=== PATIENT | female | born 1960 | race Two or more races ===

== ENCOUNTER 2024-09-13 18:23 | Inpatient (IN) | payer OTHER, MEDICAID ==
[~2024-09-13] VITALS: Ht 170.2 cm; Wt 139.8 kg
[~2024-09-13 18:23] MED LIST: APIX5TAB PO; BACL10TA PO; FLUT1SPR5 EACHNOSTRI; GABA-1250 PO; HYDR-4798 PO; HYDR200T36 PO; LACT10SO3 PO; METH2.5T62 PO; MORP1TAB12 PO; OMEP-448 PO
[2024-09-13 18:39] VITALS: PULSE 77; RESP 10; O2SAT 99
--- NOTE | 2024-09-13 18:42 | ED.PDOC ---
History of Present Illness HPI Comments 64F BIBA w/ no prior Hx associated to the c/c of SOB. Pt states that she has been having the SOB for a "couple of days". EMS note that the pt has been having cough w/ phlegm but an unknown color as well as having left sided crackles. Pt's Accucheck was 97 on scene. SHx of Tubal Ligation. Denies chills, fever, N/V/D, CP or other associated symptom's, modifiers, or recent injuries or sick contact at this time. 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, Medications, Allergies Allergies: Coded Allergies: NO KNOWN ALLERGIES (Unverified , 09/13/24) Information Source: Patient, Emergency Med Personnel Mode of Arrival: EMS Severity: Moderate Timing: Days Duration: Since onset, Days Prehospital treatment: None Associated signs and symptoms chest pain Past Medical History PAST MEDICAL HISTORY: Denies Surgical History: Tubal Ligation SANITATION LABORER History: No Pertinent SANITATION LABORER History Family History Family History: Reviewed,noncontributory to illness, Unknown Social History Smoker: Non-Smoker Alcohol: Denies ETOH Use Drugs: Denies Drug Use Lives In: Home Constitutional: denies: chills, diaphoresis, fatigue, fever, malaise, sweats, weakness, others EENTM: denies: blurred vision, double vision, ear bleeding, ear discharge, ear drainage, ear pain, ear ringing, eye pain, eye redness, hearing loss, mouth pain, mouth swelling, nasal discharge, nose bleeding, nose congestion, nose pain, photophobia, tearing, throat pain, throat swelling, voice changes, others Respiratory: reports: cough, shortness of breath; denies: hemoptysis, orthopnea, SOB at rest, SOB with excertion, stridor, wheezing, others Cardiovascular: denies: chest pain, dizzy spells, diaphoresis, Dyspnea on exertion, edema, irregular heart beat, left arm pain, lightheadedness, palpitations, PND, syncope, others Gastrointestinal: denies: abdomen distended, abdominal pain, blood streaked bowels, constipated, diarrhea, dysphagia, difficulty swallowing, hematemesis, melena, nausea, poor appetite, poor fluid intake, rectal bleeding, rectal pain, vomiting, others Genitourinary: denies: abnormal vagina bleeding, burning, dyspareunia, dysuria, flank pain, frequency, hematuria, incontinence, pain, , vagina discharge, urgency, others Neurological: denies: dizziness, fainting, headache, left sided numbness, left sided weakness, numbness, paresthesia, pre-existing deficit, right sided numbness, right sided weakness, seizure, speech problems, tingling, tremors, weakness, others Musculoskeletal: denies: back pain, gout, joint pain, joint swelling, muscle pain, muscle stiffness, neck pain, others Integumetry: denies: bruises, change in color, change in hair/nails, dryness, laceration, lesions, lumps, rash, wounds, others Allergic/Immunocompromised: denies: Difficulty Healing, Frequent Infections, Hives, Itching, others Hematologic/Lymphatic: denies: anemia, blood clots, easy bleeding, easy bruising, swollen glands, others Endocrine: denies: excessive hunger, excessive sweating, excessive thirst, excessive urination, flushing, intolerance to cold, intolerance to heat, unexplained weight gain, unexplained weight loss, others Psychiatric: denies: anxiety, bipolar disorder, depression, hopeless, panic disorder, schizophrenia, sleepless, suicidal, others All Other Systems: Reviewed and Negative Physical Exam General Appearance: Moderate Distress HEENT: Normal ENT Inspection, Pharynx Normal, TMs Normal Neck: Full Range of Motion, Non-Tender, Normal, Normal Inspection Respiratory: Chest Non-Tender, Lungs Clear, No Accessory Muscle Use, No Respiratory Distress, Normal Breath Sounds Cardiovascular: No Edema, No JVD, No Murmur, No Gallop, Normal Peripheral Pulses, Regular Rate/Rhythm Breast Exam: Deferred Gastrointestinal: No Organomegaly, Non Tender, No Pulsatile Mass, Normal Bowel Sounds, Soft Genitalia: Deferred Pelvic: Deferred Rectal: Deferred Extremities: No calf tenderness, Normal capillary refill, Non-tender, No pedal edema Musculoskeletal : Apperance: Normal Neurologic: Alert, 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 Was a procedure done?: No EKG EKG : Pulse Rate (adult): 80 [place]: Normal Cardiac Rhythm: NSR Block: None Hypertrophy: None ST: Normal Differential Dx Considerations may include: Generalized weakness, pneumonia, CHF, respiratory distress X-Ray, Labs, Meds, VS Vital Signs Date Time Temp Pulse Resp B/P (MAP) Pulse Ox O2 Delivery O2 Flow Rate FiO2 09/13/24 18:50 98.2 76 16 140/50 (80) 99 09/13/24 18:45 16 99 Nasal Cannula* 09 1309/13/24 18:42 80 09/13/24 18:41 98.1 78 10 164/138 (147) 99 98.1 09/13/24 18:39 77 10 99 Nasal Cannula* 2 09/13/24 18:24 80 Lab Test 09/13/24 19:00 Range/Units White Blood Count 3.5 L 4.4-10.8 10^3/uL Red Blood Count 4.91 4.0-5.20 10^6/uL Hemoglobin 13.5 12.2-16.2 g/dL Hematocrit 41.9 36.0-46.0 % Mean Corpuscular Volume 85.4 80.0-100.0 fL Mean Corpuscular Hemoglobin 27.4 L 28.0-32.0 pg Mean Corpuscular Hemoglobin Concent 32.1 32.0-36.0 g/dL Red Cell Distribution Width 18.6 H 11.8-14.3 % Platelet Count 235 140-450 10^3/uL Mean Platelet Volume 7.9 6.9-10.8 fL Neutrophils (%) (Auto) 35.6 L 37.0-80.0 % Lymphocytes (%) (Auto) 45.6 10.0-50.0 % Monocytes (%) (Auto) 14.2 H 0.0-12.0 % Eosinophils (%) (Auto) 4.3 0.0-7.0 % Basophils (%) (Auto) 0.3 0.0-2.0 % Neutrophils # (Auto) 1.2 L 1.6-8.6 10 ^3/uL Lymphocytes # (Auto) 1.6 0.4-5.4 10 ^3/uL Monocytes # (Auto) 0.5 0-1.3 10 ^3/uL Eosinophils # (Auto) 0.1 0-0.8 10 ^3/uL Basophils # (Auto) 0 0-0.2 10 ^3/uL Nucleated Red Blood Cells 0.4 % Sodium Level 142 136-145 mmol/L Potassium Level 3.3 L 3.5-5.1 mmol/L Chloride Level 104 98-107 mmol/L Carbon Dioxide Level 28 20-31 mmol/L Anion Gap 10 5-15 Blood Urea Nitrogen < 5 L 9-23 mg/dL Creatinine 0.49 L 0.550-1.02 mg/dL Glomerular Filtration Rate Calc 105 >90 mL/min BUN/Creatinine Ratio 10.2 10.0-20.0 Serum Glucose 104 74-106 mg/dL Lactic Acid Level 1.2 0.4-2.0 mmol/L Calcium Level 9.3 8.7-10.4 mg/dL B-Type Natriuretic Peptide 15.52 0-100 pg/mL IV Hep-Lock was established The patient's CBC is within normal limits The chemistry panel shows hypokalemia at 3.3 The rest of the chemistry panel is within normal limits The patient was given Lasix 40 mg IV push The chest x-ray shows some pulmonary congestion The patient was also given potassium The patient was being admitted to the hospitalist. Images Reviewed?: Images reviewed and evaluated by me Time of 1ST Reevaluation: 18:55 Reevaluation 1ST: Unchanged Patient Education/Counseling: Diagnosis, Treatment, Prognosis Family Education/Counseling: No Family Present Departure 1 Departure Time of Disposition: 20:15 Impression: Primary Impression: Acute respiratory distress Additional Impressions: Acute on chronic diastolic heart failure Hypokalemia Disposition: ADMITTED INPATIENT Admit to: [facility] Condition: Fair Critical Care Note Critical Care Time?: Yes (45 min-critical care time only) Stability Stability form required: Yes Unstable for transfer: Telemetry monitoring (Telemetry monitoring required), ED Physician Assesment (Clinical assesment) Heart Score Heart Score: Heart Score Response (Comments) Value History Moderate Suspicious 1 EKG Repolarization Disturb 1 Age >65 2 Risk Factors >3 or Hx ASHD 2 Troponin Normal limit 0 Total 6 I personally scribed for AUGUSTIN TORREZ MD ([email or web address]) on 09/13/24 at 18:42. Electronically submitted by Ashish Panda ([email or web address]). AUGUSTIN TORREZ MD Sep 13, 2024 18:42
--- NOTE | 2024-09-13 18:58 | DVH ---
EXAM: XR Chest, 1 View CLINICAL INDICATION: sob TECHNIQUE: Frontal view of the chest. COMPARISON: None FINDINGS: LUNGS AND PLEURAL SPACES: See below. HEART: Cardiomegaly with mild congestion. MEDIASTINUM: Unremarkable. Normal mediastinal contour. BONES/JOINTS: Unremarkable. No acute fracture. OTHER FINDINGS: . IMPRESSION: Cardiomegaly with mild congestion.
[2024-09-13 19:34] LABS: Basophils # (auto) 0 10 ^3/uL (0-0.2); Basophils % (auto) 0.3 % (0.0-2.0); Eosinophils # (auto) 0.1 10 ^3/uL (0-0.8); Eosinophils % (auto) 4.3 % (0.0-7.0); Hematocrit 41.9 % (36.0-46.0); Hemoglobin 13.5 g/dL (12.2-16.2); Lymphocytes # (auto) 1.6 10 ^3/uL (0.4-5.4); Lymphocytes % (auto) 45.6 % (10.0-50.0); Mean Corpuscular Hemoglobin 27.4 pg (28.0-32.0); Mean Corpuscular Hgb Conc. 32.1 g/dL (32.0-36.0); Mean Corpuscular Volume 85.4 fL (80.0-100.0); Monocytes # (auto) 0.5 10 ^3/uL (0-1.3); Monocytes % (auto) 14.2 % (0.0-12.0); Neutrophils # (auto) 1.2 10 ^3/uL (1.6-8.6); Neutrophils % (auto) 35.6 % (37.0-80.0); Nucleated Red Blood Cells % 0.4 %; Platelet Count (auto) 235 10^3/uL (140-450); Red Blood Cells 4.91 10^6/uL (4.0-5.20); Red Cell Distribution Width 18.6 % (11.8-14.3); White Blood Cell 3.5 10^3/uL (4.4-10.8)
[2024-09-13 19:41] LABS: Chloride 104 mmol/L (98-107); Sodium 142 mmol/L (136-145)
[2024-09-13 19:42] LABS: Anion Gap 10 (5-15); Calcium 9.3 mg/dL (8.7-10.4); Carbon Dioxide 28 mmol/L (20-31)
[2024-09-13 19:47] LABS: Glucose 104 mg/dL (74-106)
[2024-09-13 19:48] LABS: BUN/Creatinine Ratio 10.2 (10.0-20.0); Blood Urea Nitrogen < 5 mg/dL (9-23); Potassium 3.3 mmol/L (3.5-5.1)
[2024-09-13] MEDS: POTASSIUM CHL 20MEQ/100ML 100 ML IV ONE (20:15)
[2024-09-13] MEDS: FUROSEMIDE 40 MG/4 ML VIAL IV ONE (20:57)
[2024-09-13] MEDS: POTASSIUM EFFERVESENT TAB 25 MEQ PO ONE (20:57)
[2024-09-13 21:30] VITALS: PULSE 77; RESP 14; O2SAT 99
--- NOTE | 2024-09-13 21:57 | DVHHP2 ---
History of Present Illness Reason for Visit: Acute respiratory distress History of Present Illness The patient is a 64 years old female with past medical history of arthritis and GERD who presented to [facility] ED with complaint of shortness of breaths. Patient reports symptoms progressively get worse with nonproductive cough with phlegm, generalized weakness, getting worse today that prompted this visit. Patient reports she is nonambulatory for the past 1 year. Patient was seen and evaluated in the ED, laboratory data shows WBC 3.5, platelets 235, sodium 142, potassium 3.3, BUN 5, creatinine 0.49, GFR 105, glucose 104, BNP 15.52, blood pressure 140/50, heart rate 76, temperature 98.6 F, O2 saturation 99% on oxygen. Chest x-ray revealing cardiomegaly with mild congestion. Please see medication orders section in the computer. On my assessment, patient denies chest pain, no headache, no dizziness, currently on oxygen, no nausea, no vomiting, fever, no chills. Patient was admitted for further evaluation and medical management. Past Medical History GERD, Arthritis Past Surgical History Tubal Ligation Family History Reviewed, noncontributory to the management of this case. Past Social History The patient lives at home, denies smoking, alcohol or illicit drugs abuse. Review of Systems Constitutional: Yes: Weakness; No: Fever, Chills, Sweats, Malaise, Other Eyes: No: Pain, Vision change, Conjunctivae inflammation, Eyelid inflammation, Other, Redness ENT: No: Ear pain, Ear discharge, Nose pain, Nose discharge, Nose congestion, Mouth pain, Mouth swelling, Throat pain, Throat swelling, Other Respiratory: Cough, Shortness of breath; No: Dry, SOB with excertion, Wheezing, Hemoptysis, Pleuritic Pain, Sputum, Wheezing, Other Cardiovascular: No: Chest Pain, Palpitations, Orthopnea, Paroxysmal Noc. Dyspnea, Edema, Lt Headedness, Other Gastrointestinal: No: Nausea, Vomiting, Abdominal Pain, Diarrhea, Constipation, Melena, Hematochezia, Other Genitourinary: No Dysuria, No Frequency, No Incontinence, No Hematuria, No Retention, No Other Musculoskeletal: No: other, neck pain, shoulder pain, arm pain, back pain, hand pain, leg pain, foot pain Skin: No: Rash, Lesions, Jaundice, Bruising, Other Neurological: No: Weakness, Numbness, Incoordination, Change in speech, Confusion, Seizures, Other Allergies: Coded Allergies: NO KNOWN ALLERGIES (Unverified , 09/13/24) Medications Current Medications Medications Dose Ordered Sig/Eliseo Route Start Time Stop Time Status Last Admin Dose Admin Famotidine 20 mg DAILY IV 09/14/24 10:00 UNV Guaifenesin/ Dextromethorphan 10 ml Q4HP PRN PO 09/13/24 22:00 UNV Albuterol 2.5 mg Q4HPRN PRN NEB 09/13/24 22:00 UNV Ipratropium [place] 0.5 mg Q4HPRN PRN NEB 09/13/24 22:00 UNV Gabapentin 300 mg TID PO 09/13/24 22:00 UNV Apixaban 5 mg BID PO 09/13/24 22:00 UNV Sodium Chloride 10 ml Q8HR IV 09/13/24 22:00 UNV Acetaminophen/ Hydrocodone Bitart 1 tab Q4HP PRN PO 09/13/24 22:00 UNV Ondansetron HCl 4 mg Q4HP PRN IV 09/13/24 22:00 UNV Docusate Sodium 100 mg BIDPRN PRN PO 09/13/24 22:00 UNV Acetaminophen 650 mg Q6HP PRN PO 09/13/24 22:00 UNV Nitroglycerin 0.4 mg Q5MINP PRN SL 09/13/24 22:00 UNV Morphine Sulfate 2 mg Q30M PRN IV 09/13/24 22:00 UNV Exam Vital Signs Vital Signs Date Time Temp Pulse Resp B/P (MAP) Pulse Ox O2 Delivery O2 Flow Rate FiO2 09/13/24 20:57 106/61 09/13/24 20:00 98.6 70 12 99 98.6 09/13/24 18:45 Nasal Cannula* 2 28 General Appearance: Alert, Oriented X3, Cooperative, No acute distress HEENT: Atraumatic, PERRLA, EOMI, Mucous membr. moist/pink Respiratory: Normal air movement, Other (Crackles) Cardiovascular: Regular rate, Normal S1, Normal S2, No murmurs Abdominal: Normal bowel sounds, Soft, No tenderness, No hepatospenomegaly, No masses Extremities: No clubbing, No cyanosis, No edema, Normal pulses, No tenderness/swelling Skin: No rashes, No breakdown, No significant lesion Neuro: Normal speech, Normal tone, Sensation intact, Cranial nerves 3-12 NL, Reflexes 2+, Other (Generalized weakness) Psych/Mental Status: Mental status NL, Mood NL Labs/Xrays Labs Test 09/13/24 21:45 09/13/24 19:00 Range/Units White Blood Count 3.5 L 4.4-10.8 10^3/uL Red Blood Count 4.91 4.0-5.20 10^6/uL Hemoglobin 13.5 12.2-16.2 g/dL Hematocrit 41.9 36.0-46.0 % Mean Corpuscular Volume 85.4 80.0-100.0 fL Mean Corpuscular Hemoglobin 27.4 L 28.0-32.0 pg Mean Corpuscular Hemoglobin Concent 32.1 32.0-36.0 g/dL Red Cell Distribution Width 18.6 H 11.8-14.3 % Platelet Count 235 140-450 10^3/uL Mean Platelet Volume 7.9 6.9-10.8 fL Neutrophils (%) (Auto) 35.6 L 37.0-80.0 % Lymphocytes (%) (Auto) 45.6 10.0-50.0 % Monocytes (%) (Auto) 14.2 H 0.0-12.0 % Eosinophils (%) (Auto) 4.3 0.0-7.0 % Basophils (%) (Auto) 0.3 0.0-2.0 % Neutrophils # (Auto) 1.2 L 1.6-8.6 10 ^3/uL Lymphocytes # (Auto) 1.6 0.4-5.4 10 ^3/uL Monocytes # (Auto) 0.5 0-1.3 10 ^3/uL Eosinophils # (Auto) 0.1 0-0.8 10 ^3/uL Basophils # (Auto) 0 0-0.2 10 ^3/uL Nucleated Red Blood Cells 0.4 % Sodium Level 142 136-145 mmol/L Potassium Level 3.3 L 3.5-5.1 mmol/L Chloride Level 104 98-107 mmol/L Carbon Dioxide Level 28 20-31 mmol/L Anion Gap 10 5-15 Blood Urea Nitrogen < 5 L 9-23 mg/dL Creatinine 0.49 L 0.550-1.02 mg/dL Glomerular Filtration Rate Calc 105 >90 mL/min BUN/Creatinine Ratio 10.2 10.0-20.0 Serum Glucose 104 74-106 mg/dL Lactic Acid Level 1.2 0.4-2.0 mmol/L Calcium Level 9.3 8.7-10.4 mg/dL B-Type Natriuretic Peptide 15.52 0-100 pg/mL PATIENT: IJEOMA LIZAMA ACCT: [id number] UNIT: [id number] : 1960 LOC: ER ROOM / BED: / AGE / SEX: 64 / F ADM STATUS: REG ER SERVICE 1840 ORDERING PHYSICIAN: AUGUSTIN TORREZ MD PROCEDURE(s): CXRP - CHEST PORTABLE REASON: sob ORDER NUMBER(s): [id number], ACCESSION NUMBER(s): [id number] EXAM: XR Chest, 1 View CLINICAL INDICATION: sob TECHNIQUE: Frontal view of the chest. COMPARISON: None FINDINGS: LUNGS AND PLEURAL SPACES: See below. HEART: Cardiomegaly with mild congestion. MEDIASTINUM: Unremarkable. Normal mediastinal contour. BONES/JOINTS: Unremarkable. No acute fracture. OTHER FINDINGS: IMPRESSION: Cardiomegaly with mild congestion. Assessment/Plan Assessment/Plan Acute respiratory distress Hypokalemia Generalized weakness Plan 1. Admit to telemetry unit 2. Breathing treatment 3. Pain control management 4. Management of fluids and electrolytes 5. Consultation for hospitalist 6. Diagnostic tests chest x-ray 7. DVT prophylaxis-on Eliquis 8. Repeat labs CBC, CMP in a.m. 9. Continue with current medical management 10. Treatment plan discussed with patient and RN. Patient verbalized understanding. Plan discussed with: Patient, Other (RN) My Orders Orders - JEREMI NARAYAN DNP Procedure Category Date Status Time Famotidine Injection PHA 09/14/24 Logged (Pepcid Injection) 10:00 Guaifenesin-Dextromet PHA 09/13/24 Logged Liquid (Robitussin 22:00 Albuterol Medneb PHA 09/13/24 Logged (Ventolin Medneb) 22:00 Ipratropium Medneb PHA 09/13/24 Logged (Atrovent Medneb) 22:00 Gabapentin Capsule PHA 09/13/24 Logged (Neurontin Capsule) 22:00 Apixaban (Eliquis) PHA 09/13/24 Logged 22:00 Admit ADMIT 09/13/24 Transmitted 21:47 Allergies ABRAN 09/13/24 In Process 21:47 Code Status CODE 09/13/24 Transmitted 21:47 Sodium Chloride Lock PHA 09/13/24 Logged (Saline Lock Ns) 22:00 Oxygen Per Hour RT 09/13/24 Transmitted 21:47 Hydrocodone-Acet PHA 09/13/24 Logged 5/325mg Tab ([place] 22:00 Ondansetron Hcl PHA 09/13/24 Logged (Zofran) 22:00 Docusate Sodium PHA 09/13/24 Logged Capsule (Colace 22:00 Fall Risk Precautions ABRAN 09/13/[address] 21:47 Complete Blood Count LAB 09/14/24 Verified 04:00 Comprehensive LAB 09/14/24 Verified Metabolic Panel 04:00 Cardiac DIET 09/14/24 Transmitted Diet-2gna,Lofat,Lochol Breakfast Condition: Serious ABRAN 09/13/24 In Process 21:47 Acetaminophen Tablet PHA 09/13/24 Logged (Tylenol Tablet) 22:00 Sequential ABRAN 09/13/24 In Process Compression Device Nitroglycerin PHA 09/13/24 Logged Sublingual (Ntrostat 22:00 Morphine Sulfate PHA 09/13/24 Logged Injection 22:00 Stat Ekg For Chest ABRAN 09/13/24 In Process Pain 21:47 Notify Of Changes ABRAN 09/13/24 In Process From Base 21:47 Frame Changer For ABRAN 09/13/24 In Process 24 Hours 21:47 Emergency Dysrhythmia ABRAN 09/13/24 In Process Protocol 21:47 Rhythm Strips Once ABRAN 09/13/24 In Process Every Shift 21:47 Oxygen By Nasal RT 09/13/24 Transmitted Cannula 21:47 Problem List: (1) Acute respiratory distress (2) Hypokalemia (3) Generalized weakness Date of Service: Sep 13, 2024 Billing Provider: JEREMI NARAYAN DNP Common Visit Codes: [id number] INP/OBS CARE (HIGH) JEREMI NARAYAN DNP Sep 13, 2024 21:57
[2024-09-13] MEDS ORDERED: MORPHINE SULFATE INJ 2 MG/ml SYRG IV PRN (22:00)
[2024-09-13] MEDS ORDERED: IPRATROPIUM BROM 0.5 MG/2.5ML INH SOL NEB PRN (22:00)
[2024-09-13] MEDS ORDERED: ONDANSETRON HCL 4 MG/2 ML VIAL IV PRN (22:00)
[2024-09-13] MEDS ORDERED: ACETAMINOPHEN 325 MG TAB PO PRN (22:00)
[2024-09-13] MEDS: SODIUM CHLOR 0.9% PF (SALINE LOCK) 10ML VIAL/SYR IV SCH (22:00)
[2024-09-13] MEDS ORDERED: ALBUTEROL SULF 2.5 MG/0.5ML(0.5%) NEB SOLN NEB PRN (22:00)
[2024-09-13] MEDS ORDERED: NITROGLYCERIN 0.4 MG SL TAB SL PRN (22:00)
[2024-09-13 22:10] VITALS: BP 104/60; PULSE 76; RESP 20; O2SAT 99
[2024-09-13 22:42] LABS: COVID19 ANTIGEN SOFIA FIA POSITIVE (NEGATIVE); Rapid Influenza A Positive (Negative); Rapid Influenza B Positive (Negative)
[2024-09-13] MEDS: APIXABAN 5 MG TAB PO SCH (22:44)
[2024-09-13] MEDS: GABAPENTIN 300 MG CAP PO SCH (22:45)
[2024-09-14] VITALS (10 sets, daily range): BP systolic 81–113; BP diastolic 53–62; PULSE 69–82; RESP 17–95; TEMP 97.3–98.3; O2SAT 93–100
[2024-09-14] MEDS ORDERED: TETR0.0542 OP (00:41)
[2024-09-14] MEDS ORDERED: GABA-1308 PO (00:41)
[2024-09-14] MEDS ORDERED: MORP1CAP9 PO (00:41)
[2024-09-14] MEDS ORDERED: OMEP-434 PO (00:41)
[2024-09-14] MEDS ORDERED: FOLI-119 PO (00:41)
[2024-09-14] MEDS ORDERED: BACL20TA PO (00:41)
[2024-09-14] MEDS: guaiFENesin-DM 100/10mg/5ml SYR PO PRN (03:52)
[2024-09-14 05:44] LABS: Basophils # (auto) 0 10 ^3/uL (0-0.2); Basophils % (auto) 0.3 % (0.0-2.0); Eosinophils # (auto) 0.2 10 ^3/uL (0-0.8); Eosinophils % (auto) 4.2 % (0.0-7.0); Hematocrit 40.4 % (36.0-46.0); Lymphocytes # (auto) 1.4 10 ^3/uL (0.4-5.4); Lymphocytes % (auto) 35.5 % (10.0-50.0); Mean Corpuscular Hemoglobin 27.6 pg (28.0-32.0); Mean Corpuscular Hgb Conc. 32.1 g/dL (32.0-36.0); Mean Corpuscular Volume 85.9 fL (80.0-100.0); Monocytes # (auto) 0.5 10 ^3/uL (0-1.3); Monocytes % (auto) 11.9 % (0.0-12.0); Neutrophils # (auto) 1.9 10 ^3/uL (1.6-8.6); Neutrophils % (auto) 48.1 % (37.0-80.0); Nucleated Red Blood Cells % 0.3 %; Platelet Count (auto) 275 10^3/uL (140-450); Red Cell Distribution Width 18.6 % (11.8-14.3)
[2024-09-14 05:54] LABS: Albumin 3.7 g/dL (3.2-4.8); Alkaline Phosphatase 68 U/L (46-116); Anion Gap 9 (5-15); Aspartate Aminotransferase 19 U/L (13-40); Bilirubin, Total 0.4 mg/dL (0.2-1.0); Calcium 8.8 mg/dL (8.7-10.4); Carbon Dioxide 30 mmol/L (20-31); Chloride 104 mmol/L (98-107); Glucose 104 mg/dL (74-106); Sodium 143 mmol/L (136-145); Total Protein 6.6 g/dL (5.7-8.2)
[2024-09-14 06:06] LABS: Alanine Aminotransferase < 9 U/L (7-40); BUN/Creatinine Ratio 8.1 (10.0-20.0); Blood Urea Nitrogen < 5 mg/dL (9-23); Potassium 3.5 mmol/L (3.5-5.1)
[2024-09-14] MEDS: HYDROcodone-ACET 5/325MG TAB PO PRN (06:24)
[2024-09-14] MEDS: FAMOTIDINE (10MG/ML) 2ML VL IV SCH (10:17)
--- NOTE | 2024-09-14 12:27 | DVHPN2 ---
Reviewed: Care Plan, H&P, Labs, Medications, Previous Orders, Radiology Changes from previous H/P or p: No Changes Eyes: No Pain, No Vision change, No Conjunctivae inflammation, No Eyelid inflammation, No Other, No Redness ENT: No Ear pain, No Ear discharge, No Nose pain, No Nose discharge, No Nose congestion, No Mouth pain, No Mouth swelling, No Throat pain, No Throat swelling, No Other Cardiovascular: No Chest Pain, No Palpitations, No Orthopnea, No Paroxysmal Noc. Dyspnea, No Edema, No Lt Headedness, No Other Respiratory: Cough; No Dry; Shortness of breath; No SOB with excertion, No Wheezing, No Hemoptysis, No Pleuritic Pain, No Sputum, No Other Gastrointestinal: No Nausea, No Vomiting, No Abdominal Pain, No Diarrhea, No Constipation, No Melena, No Hematochezia, No Other Genitourinary: No Dysuria, No Frequency, No Incontinence, No Hematuria, No Retention, No Other Musculoskeletal: No other, No neck pain, No shoulder pain, No arm pain, No back pain, No hand pain, No leg pain, No foot pain Skin: No Rash, No Lesions, No Jaundice, No Bruising, No Other Objective Vitals Vital Signs Date Time Temp Pulse Resp B/P (MAP) Pulse Ox O2 Delivery O2 Flow Rate FiO2 09/14/24 09:09 98.0 69 20 102/56 (71) 99 98.0 09/14/24 08:00 Nasal Cannula* 2 28 Intake/Output Intake and Output 09/14/24 07:00 Intake Total 225 ml Balance 225 ml Intake Oral 225 ml # Voids 1 Medications Current Medications Medications Dose Ordered Sig/Eliseo Route Start Time Stop Time Status Last Admin Dose Admin Famotidine 20 mg DAILY IV 09/14/24 10:00 09/14/24 10:17 20 MG Guaifenesin/ Dextromethorphan 10 ml Q4HP PRN PO 09/13/24 22:00 09/14/24 03:52 10 ML Albuterol 2.5 mg Q4HPRN PRN NEB 09/13/24 22:00 Ipratropium [place] 0.5 mg Q4HPRN PRN NEB 09/13/24 22:00 Gabapentin 300 mg TID PO 09/13/24 22:00 09/14/24 06:09 300 MG Apixaban 5 mg BID PO 09/13/24 22:00 09/14/24 10:17 5 MG Sodium Chloride 10 ml Q8HR IV 09/13/24 22:00 09/14/24 06:09 10 ML Acetaminophen/ Hydrocodone Bitart 1 tab Q4HP PRN PO 09/13/24 22:00 09/14/24 06:24 1 TAB Ondansetron HCl 4 mg Q4HP PRN IV 09/13/24 22:00 Docusate Sodium 100 mg BIDPRN PRN PO 09/13/24 22:00 Acetaminophen 650 mg Q6HP PRN PO 09/13/24 22:00 Nitroglycerin 0.4 mg Q5MINP PRN SL 09/13/24 22:00 Morphine Sulfate 2 mg Q30M PRN IV 09/13/24 22:00 Oseltamivir Phosphate 75 mg Q12HR PO 09/14/24 22:00 09/19/24 21:59 UNV Ceftriaxone Sodium 50 ml @ 100 mls/hr DAILY@09 IV 09/15/24 09:00 UNV Azithromycin 250 ml @ 125 mls/hr DAILY IV 09/15/24 10:00 UNV Ascorbic Acid 500 mg BID PO 09/14/24 22:00 UNV Zinc Sulfate 220 mg DAILY PO 09/15/24 10:00 UNV Cholecalciferol 4,000 unit DAILY PO 09/15/24 10:00 UNV Laboratory Results Laboratory Tests 09/14/24 05:12 Chemistry Test 09/13/24 19:00 09/14/24 05:12 Calcium Level 9.3 mg/dL (8.7-10.4) 8.8 mg/dL (8.7-10.4) Albumin 3.7 g/dL (3.2-4.8) Total Protein 6.6 g/dL (5.7-8.2) Cardiac Markers Test 09/13/24 19:00 B-Type Natriuretic Peptide 15.52 pg/mL (0-100) LFT Test 09/14/24 05:12 Alanine Aminotransferase (ALT) < 9 U/L (7-40) Alkaline Phosphatase 68 U/L (46-116) Aspartate Amino Transferase (AST) 19 U/L (13-40) Total Bilirubin 0.4 mg/dL (0.2-1.0) Labs and/or images reviewed: Labs reviewed by me, Image(s) reviewed by me Assessment/Plan Assessment/Plan Acute hypoxic respiratory failure: Oxygen by nasal cannula Type A flu positive, type B flu positive: Tamiflu 75 mg p.o. b.i.d. five days Possible community-acquired pneumonia: Rocephin azithromycin COVID positive: Albuterol Atrovent med neb Decadron vitamin-C zinc vitamin D3 History of rheumatoid arthritis: Dr. Barry following Chronic left shoulder pain under the pain management Dr Dr. Mckinnon, patient says she takes [place] 10/325 po TID History of left foot drop since one year under the physical therapy History of DVT and PE on Eliquis PCP Dr.Nanda Peng Time spent 65 minutes Patient is full code Advanced care planning time 20 minutes Plan discussed with: Patient My Orders Orders - TRUONG PAGE MD Procedure Category Date Status Time Oseltamivir 75mg PHA 3/25 Logged Capsule (Tamiflu 75mg 22:00 Ceftriaxone 1gm/50ml PHA 3/2/25 Logged D5w (Rocephin) 09:00 Ceftriaxone 1gm/50ml PHA 3/1/25 Logged D5w (Rocephin) 12:15 Azithromycin 500mg/ PHA 3/2/25 Logged 250ml (Zithromax 50 10:00 Azithromycin 500mg/ PHA 3//25 Logged 250ml (Zithromax 50 12:15 Ascorbic Acid Tablet PHA 3//25 Logged (Vitamin C Tablet) 22:00 Zinc Sulfate PHA 3//25 Logged 12:15 Zinc Sulfate PHA 3/2/25 Logged 10:00 Cholecalciferol PHA 3/25 Logged Tablet (Vitamin D3 12:15 Cholecalciferol PHA 3/2/25 Logged Tablet (Vitamin D3 10:00 Date of Service: Sep 14, 2024 Billing Provider: TRUONG PAGE MD Common Visit Codes: [id number] CARE 30-74 MIN TRUONG PAGE MD Sep 14, 2024 12:27
[2024-09-14] MEDS: ZINC SULFATE 220mg CAP or TAB PO ONE (14:03)
[2024-09-14] MEDS: OSELTAMIVIR 75 MG CAP PO SCH (14:03)
[2024-09-14] MEDS: cefTRIAXone 1GM/50ML D5W 50 ML IV ONE (14:03)
[2024-09-14] MEDS: CHOLECALCIFEROL (VITD3) 1,000UNIT=25mCg TAB PO ONE (14:03)
[2024-09-14] MEDS: DexAMETHasone INJECTION 10 MG in D5W 5% 50 ML IV ONE (14:59)
[2024-09-14] MEDS: AZITHROMYCIN 500MG/ 250ML 250 ML IV ONE (15:10)
[2024-09-14] MEDS: ASCORBIC ACID 500 MG TAB PO SCH (21:54)
[2024-09-14] MEDS: HYDROcodone-ACET 10/325MG TAB PO PRN (22:07)
[2024-09-15] VITALS (8 sets, daily range): BP systolic 88–102; BP diastolic 39–67; PULSE 67–88; RESP 16–20; TEMP 97.7–98.4; O2SAT 99–100
--- NOTE | 2024-09-15 09:01 | DVHPN2 ---
Reviewed: Care Plan, H&P, Labs, Medications, Previous Orders, Radiology Changes from previous H/P or p: No Changes Eyes: No Pain, No Vision change, No Conjunctivae inflammation, No Eyelid inflammation, No Other, No Redness ENT: No Ear pain, No Ear discharge, No Nose pain, No Nose discharge, No Nose congestion, No Mouth pain, No Mouth swelling, No Throat pain, No Throat swelling, No Other Cardiovascular: No Chest Pain, No Palpitations, No Orthopnea, No Paroxysmal Noc. Dyspnea, No Edema, No Lt Headedness, No Other Respiratory: Cough; No Dry; Shortness of breath; No SOB with excertion, No Wheezing, No Hemoptysis, No Pleuritic Pain, No Sputum, No Other Gastrointestinal: No Nausea, No Vomiting, No Abdominal Pain, No Diarrhea, No Constipation, No Melena, No Hematochezia, No Other Genitourinary: No Dysuria, No Frequency, No Incontinence, No Hematuria, No Retention, No Other Musculoskeletal: No other, No neck pain, No shoulder pain, No arm pain, No back pain, No hand pain, No leg pain, No foot pain Skin: No Rash, No Lesions, No Jaundice, No Bruising, No Other Objective Vitals Vital Signs Date Time Temp Pulse Resp B/P (MAP) Pulse Ox O2 Delivery O2 Flow Rate FiO2 09/15/24 07:40 Nasal Cannula* 09 1309/15/24 05:00 98.0 84 18 () 100 98.0 Intake/Output Intake and Output 09/15/24 07:00 Intake Total 1451 ml Balance 1451 ml Intake Oral 1100 ml IV Total 351 ml # Voids 6 Medications Current Medications Medications Dose Ordered Sig/Eliseo Route Start Time Stop Time Status Last Admin Dose Admin Famotidine 20 mg DAILY IV 09/14/24 10:00 09/14/24 10:17 20 MG Guaifenesin/ Dextromethorphan 10 ml Q4HP PRN PO 09/13/24 22:00 09/14/24 03:52 10 ML Albuterol 2.5 mg Q4HPRN PRN NEB 09/13/24 22:00 Cancel Ipratropium [place] 0.5 mg Q4HPRN PRN NEB 09/13/24 22:00 Cancel Gabapentin 300 mg TID PO 09/13/24 22:00 09/15/24 06:32 300 MG Apixaban 5 mg BID PO 09/13/24 22:00 09/14/24 21:54 5 MG Sodium Chloride 10 ml Q8HR IV 09/13/24 22:00 09/15/24 06:32 10 ML Ondansetron HCl 4 mg Q4HP PRN IV 09/13/24 22:00 Docusate Sodium 100 mg BIDPRN PRN PO 09/13/24 22:00 Acetaminophen 650 mg Q6HP PRN PO 09/13/24 22:00 Nitroglycerin 0.4 mg Q5MINP PRN SL 09/13/24 22:00 Morphine Sulfate 2 mg Q30M PRN IV 09/13/24 22:00 Oseltamivir Phosphate 75 mg Q12HR PO 09/14/24 12:34 09/19/24 12:33 09/14/24 21:54 75 MG Ceftriaxone Sodium 50 ml @ 100 mls/hr DAILY@09 IV 09/15/24 09:00 Azithromycin 250 ml @ 125 mls/hr DAILY IV 09/15/24 10:00 Ascorbic Acid 500 mg BID PO 09/14/24 22:00 09/14/24 21:54 500 MG Zinc Sulfate 220 mg DAILY PO 09/15/24 10:00 Cholecalciferol 4,000 unit DAILY PO 09/15/24 10:00 Dexamethasone Sodium Phosphate 10 mg/Dextrose 51 ml @ 204 mls/hr DAILY IV 09/15/24 10:00 Acetaminophen/ Hydrocodone Bitart 1 tab Q8HP PRN PO 09/14/24 12:30 09/14/24 22:07 1 TAB Laboratory Results Laboratory Tests 09/14/24 05:12 Microbiology Microbiology Date/Time Source Procedure Growth Status 09/13/24 19:00 Blood Blood Culture - Preliminary NO GROWTH AFTER 24 HOURS OF INCUBATION. Resulted Labs and/or images reviewed: Labs reviewed by me, Image(s) reviewed by me Assessment/Plan Assessment/Plan Acute hypoxic respiratory failure: Oxygen by nasal cannula Type A flu positive, type B flu positive: Tamiflu 75 mg p.o. b.i.d. five days Possible community-acquired pneumonia: Rocephin azithromycin COVID positive: Albuterol Atrovent med neb Decadron vitamin-C zinc vitamin D3 History of rheumatoid arthritis: Dr. Barry following Chronic left shoulder pain under the pain management Dr Dr. Mckinnon, patient says she takes [place] 10/325 po TID History of left foot drop since one year under the physical therapy History of DVT and PE on Eliquis PCP Dr.Nanda Peng Time spent 55 minutes Patient is full code Patient feels better today Plan discussed with: Patient My Orders Orders - TRUONG PAGE MD Procedure Category Date Status Time Oseltamivir 75mg PHA 09/14/24 In Process Capsule (Tamiflu 75mg 12:34 Ceftriaxone 1gm/50ml PHA 25 In Process D5w (Rocephin) 09:00 Azithromycin 500mg/ PHA /25 In Process 250ml (Zithromax 50 10:00 Ascorbic Acid Tablet PHA 09/14/24 In Process (Vitamin C Tablet) 22:00 Zinc Sulfate PHA 09/15/24 In Process 10:00 Cholecalciferol PHA 09/15/24 In Process Tablet (Vitamin D3 10:00 Dexamethasone PHA 09/15/24 In Process Injection (Decadron 10:00 Hydrocodone-Acet PHA 09/14/24 In Process 10/325mg Tab ([place] 12:30 Regular Diet DIET 09/14/24 Transmitted Dinner Date of Service: Sep 15, 2024 Billing Provider: TRUONG PAGE MD Common Visit Codes: [id number] INP/OBS CARE(HIGH) TRUONG PAGE MD Sep 15, 2024 09:01
[2024-09-15] MEDS: cefTRIAXone 1GM/50ML D5W 50 ML IV SCH (09:20)
[2024-09-15] MEDS: CHOLECALCIFEROL (VITD3) 1,000UNIT=25mCg TAB PO SCH (09:21)
[2024-09-15] MEDS: ZINC SULFATE 220mg CAP or TAB PO SCH (09:21)
[2024-09-15] MEDS: AZITHROMYCIN 500MG/ 250ML 250 ML IV SCH (10:17)
[2024-09-15] MEDS: DexAMETHasone INJECTION 10 MG in D5W 5% 50 ML IV SCH (13:00)
[2024-09-15] MEDS: SODIUM CHLORIDE 0.9% 1,000 ML IV SCH (13:15)
[2024-09-16] VITALS (9 sets, daily range): BP systolic 98–125; BP diastolic 47–76; PULSE 58–90; RESP 14–19; TEMP 97.6–98.4; O2SAT 96–100
--- NOTE | 2024-09-16 07:58 | DVHPN2 ---
Reviewed: Care Plan, H&P, Labs, Medications, Previous Orders, Radiology Changes from previous H/P or p: No Changes Eyes: No Pain, No Vision change, No Conjunctivae inflammation, No Eyelid inflammation, No Other, No Redness ENT: No Ear pain, No Ear discharge, No Nose pain, No Nose discharge, No Nose congestion, No Mouth pain, No Mouth swelling, No Throat pain, No Throat swelling, No Other Cardiovascular: No Chest Pain, No Palpitations, No Orthopnea, No Paroxysmal Noc. Dyspnea, No Edema, No Lt Headedness, No Other Respiratory: Cough; No Dry; Shortness of breath; No SOB with excertion, No Wheezing, No Hemoptysis, No Pleuritic Pain, No Sputum, No Other Gastrointestinal: No Nausea, No Vomiting, No Abdominal Pain, No Diarrhea, No Constipation, No Melena, No Hematochezia, No Other Genitourinary: No Dysuria, No Frequency, No Incontinence, No Hematuria, No Retention, No Other Musculoskeletal: No other, No neck pain, No shoulder pain, No arm pain, No back pain, No hand pain, No leg pain, No foot pain Skin: No Rash, No Lesions, No Jaundice, No Bruising, No Other Objective Vitals Vital Signs Date Time Temp Pulse Resp B/P (MAP) Pulse Ox O2 Delivery O2 Flow Rate FiO2 09/16/24 06:06 97.6 62 19 125/76 (92) 100 97.6 09/15/24 19:58 Nasal Cannula* 2 28 Intake/Output Intake and Output 09/16/24 07:00 Intake Total 1711 ml Balance 1711 ml Intake Oral 1360 ml IV Total 351 ml # Voids 3 # Bowel Movements 1 Medications Current Medications Medications Dose Ordered Sig/Eliseo Route Start Time Stop Time Status Last Admin Dose Admin Famotidine 20 mg DAILY IV 09/14/24 10:00 09/15/24 09:21 20 MG Guaifenesin/ Dextromethorphan 10 ml Q4HP PRN PO 09/13/24 22:00 09/14/24 03:52 10 ML Albuterol 2.5 mg Q4HPRN PRN NEB 09/13/24 22:00 Cancel Ipratropium [place] 0.5 mg Q4HPRN PRN NEB 09/13/24 22:00 Cancel Gabapentin 300 mg TID PO 09/13/24 22:00 09/16/24 05:52 300 MG Apixaban 5 mg BID PO 09/13/24 22:00 09/15/24 21:59 5 MG Sodium Chloride 10 ml Q8HR IV 09/13/24 22:00 09/16/24 05:52 10 ML Ondansetron HCl 4 mg Q4HP PRN IV 09/13/24 22:00 Docusate Sodium 100 mg BIDPRN PRN PO 09/13/24 22:00 Acetaminophen 650 mg Q6HP PRN PO 09/13/24 22:00 Nitroglycerin 0.4 mg Q5MINP PRN SL 09/13/24 22:00 Morphine Sulfate 2 mg Q30M PRN IV 09/13/24 22:00 Oseltamivir Phosphate 75 mg Q12HR PO 09/14/24 12:34 09/19/24 12:33 09/15/24 21:59 75 MG Ceftriaxone Sodium 50 ml @ 100 mls/hr DAILY@09 IV 09/15/24 09:00 09/15/24 09:20 100 MLS/HR Azithromycin 250 ml @ 125 mls/hr DAILY IV 09/15/24 10:00 09/15/24 10:17 125 MLS/HR Ascorbic Acid 500 mg BID PO 09/14/24 22:00 09/15/24 21:59 500 MG Zinc Sulfate 220 mg DAILY PO 09/15/24 10:00 09/15/24 09:21 220 MG Cholecalciferol 4,000 unit DAILY PO 09/15/24 10:00 09/15/24 09:21 4,000 UNIT Dexamethasone Sodium Phosphate 10 mg/Dextrose 51 ml @ 204 mls/hr DAILY IV 09/15/24 10:00 09/15/24 13:00 204 MLS/HR Acetaminophen/ Hydrocodone Bitart 1 tab Q8HP PRN PO 09/14/24 12:30 09/16/24 05:52 1 TAB Sodium Chloride 1,000 ml @ 100 mls/hr Q10H IV 09/15/24 13:15 09/15/24 23:15 100 MLS/HR Laboratory Results Laboratory Tests 09/14/24 05:12 Microbiology Microbiology Date/Time Source Procedure Growth Status 09/13/24 19:00 Blood Blood Culture - Preliminary NO GROWTH AFTER 48 HOURS OF INCUBATION. Resulted Labs and/or images reviewed: Labs reviewed by me, Image(s) reviewed by me Assessment/Plan Assessment/Plan Acute hypoxic respiratory failure: Oxygen by nasal cannula Type A flu positive, type B flu positive: Tamiflu 75 mg p.o. b.i.d. five days Possible community-acquired pneumonia: Rocephin azithromycin COVID positive: Albuterol Atrovent med neb Decadron vitamin-C zinc vitamin D3 History of rheumatoid arthritis: Dr. Barry following Chronic left shoulder pain under the pain management Dr Dr. Mckinnon, patient says she takes [place] 10/325 po TID History of left foot drop since one year under the physical therapy History of DVT and PE on Eliquis Blood cultures negative PCP Dr.Nanda Peng Time spent 55 minutes Patient is full code Patient feels better today Plan discussed with: Patient My Orders Orders - TRUONG PAGE MD Procedure Category Date Status Time Sodium Chloride 0.9% PHA 09/15/24 In Process 13:15 Date of Service: Sep 16, 2024 Billing Provider: TRUONG PAGE MD Common Visit Codes: [id number] INP/OBS CARE(HIGH) TRUONG PAGE MD Sep 16, 2024 07:58
--- NOTE | 2024-09-16 16:13 | ECG ---
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
--- NOTE | 2024-09-16 18:37 | DVHINCON2 ---
Date of service: Sep 16, [address] Joey Castaneda Reason for Consultation RA History of Present Illness 64 y/o F with seropositive RA on MTX 20mg weekly, enbrel 50mg SC weekly, foot drop, hx of VTE admitted with SOB. Found to be positive for flu and COVID and admitted for hypoxemic respiratory failure, sepsis. Holding RA meds. Family History: Patient reports no known family medical history. Allergies: Coded Allergies: NO KNOWN ALLERGIES (Unverified , 09/13/24) Home Meds Reported Medications Baclofen (Baclofen) 20 Mg Tab, 1 TAB PO TID, #90 TAB 2 Refills 09/14/24 Omeprazole Magnesium (Omeprazole) 20 Mg Tab, 20 MG PO, TAB 09/14/24 Gabapentin (Gabapentin) 100 Mg Cap, 1 CAP PO TID, #90 CAP 2 Refills 09/14/24 Tetrahydrozoline Hcl (Eye Drops) 0.05 % Erin, 0.05 % OP, ML 09/14/24 Fluticasone Propionate (Nasal) (Flonase Allergy Relief) 50 Mcg/Act Spr, 50 MCG NA, SPRAY 09/14/24 Morphine Sulfate Beads (Morphine Sulfate ER) 30 Mg Cap, 30 MG PO, CAP 09/14/24 Hydrocodone-Acetaminophen (Hydrocodone Bitartrate/AC 10-325 mg) 1 Tab Tab, 1 TAB PO, TAB 09/14/24 Folic Acid (Folic Acid) 1 Mg Tab, 1 MG PO, TAB 09/14/24 Vital Signs Vital Signs Date Time Temp Pulse Resp B/P (MAP) Pulse Ox O2 Delivery O2 Flow Rate FiO2 09/16/24 16:49 97.8 64 16 121/56 (77) 98 97.8 09/16/24 10:00 Nasal Cannula* 2 Labs/Diagnostic Data Labs Test 09/14/24 05:12 09/13/24 21:45 09/13/24 19:00 Range/Units White Blood Count 4.0 L 4.4-10.8 10^3/uL Red Blood Count 4.70 4.0-5.20 10^6/uL Hemoglobin 13.0 12.2-16.2 g/dL Hematocrit 40.4 36.0-46.0 % Mean Corpuscular Volume 85.9 80.0-100.0 fL Mean Corpuscular Hemoglobin 27.6 L 28.0-32.0 pg Mean Corpuscular Hemoglobin Concent 32.1 32.0-36.0 g/dL Red Cell Distribution Width 18.6 H 11.8-14.3 % Platelet Count 275 140-450 10^3/uL Mean Platelet Volume 7.8 6.9-10.8 fL Neutrophils (%) (Auto) 48.1 37.0-80.0 % Lymphocytes (%) (Auto) 35.5 10.0-50.0 % Monocytes (%) (Auto) 11.9 0.0-12.0 % Eosinophils (%) (Auto) 4.2 0.0-7.0 % Basophils (%) (Auto) 0.3 0.0-2.0 % Neutrophils # (Auto) 1.9 1.6-8.6 10 ^3/uL Lymphocytes # (Auto) 1.4 0.4-5.4 10 ^3/uL Monocytes # (Auto) 0.5 0-1.3 10 ^3/uL Eosinophils # (Auto) 0.2 0-0.8 10 ^3/uL Basophils # (Auto) 0 0-0.2 10 ^3/uL Nucleated Red Blood Cells 0.3 % Sodium Level 143 136-145 mmol/L Potassium Level 3.5 3.5-5.1 mmol/L Chloride Level 104 98-107 mmol/L Carbon Dioxide Level 30 20-31 mmol/L Anion Gap 9 5-15 Blood Urea Nitrogen < 5 L 9-23 mg/dL Creatinine 0.62 0.550-1.02 mg/dL Glomerular Filtration Rate Calc 99 >90 mL/min BUN/Creatinine Ratio 8.1 L 10.0-20.0 Serum Glucose 104 74-106 mg/dL Calcium Level 8.8 8.7-10.4 mg/dL Total Bilirubin 0.4 0.2-1.0 mg/dL Aspartate Amino Transferase (AST) 19 13-40 U/L Alanine Aminotransferase (ALT) < 9 7-40 U/L Alkaline Phosphatase 68 46-116 U/L Total Protein 6.6 5.7-8.2 g/dL Albumin 3.7 3.2-4.8 g/dL Influenza Type A Antigen Positive Negative Influenza Type B Antigen Positive Negative SARS-CoV-2 Antigen (Rapid) Positive NEGATIVE Lactic Acid Level 1.2 0.4-2.0 mmol/L B-Type Natriuretic Peptide 15.52 0-100 pg/mL Microbiology Date/Time Source Procedure Growth Status 09/13/24 19:00 Blood Blood Culture - Preliminary NO GROWTH AFTER 48 HOURS OF INCUBATION. Resulted Problems(with codes): (1) Rheumatoid arthritis (2) Acute respiratory distress (3) Acute on chronic diastolic heart failure (4) Generalized weakness Plan/Recommendation hold MTX, Enbrel respiratory failure management per hospitalist can resume meds in the outpatient setting Plan discussed with: Patient ELISHA HANSON MD Sep 16, 2024 18:37
[2024-09-17] VITALS (9 sets, daily range): BP systolic 103–131; BP diastolic 41–66; PULSE 49–80; RESP 15–18; TEMP 97.6–98.1; O2SAT 90–99
--- NOTE | 2024-09-17 07:55 | DVHPN2 ---
Reviewed: Care Plan, H&P, Labs, Medications, Previous Orders, Radiology Changes from previous H/P or p: No Changes Eyes: No Pain, No Vision change, No Conjunctivae inflammation, No Eyelid inflammation, No Other, No Redness ENT: No Ear pain, No Ear discharge, No Nose pain, No Nose discharge, No Nose congestion, No Mouth pain, No Mouth swelling, No Throat pain, No Throat swelling, No Other Cardiovascular: No Chest Pain, No Palpitations, No Orthopnea, No Paroxysmal Noc. Dyspnea, No Edema, No Lt Headedness, No Other Respiratory: Cough; No Dry; Shortness of breath; No SOB with excertion, No Wheezing, No Hemoptysis, No Pleuritic Pain, No Sputum, No Other Gastrointestinal: No Nausea, No Vomiting, No Abdominal Pain, No Diarrhea, No Constipation, No Melena, No Hematochezia, No Other Genitourinary: No Dysuria, No Frequency, No Incontinence, No Hematuria, No Retention, No Other Musculoskeletal: No other, No neck pain, No shoulder pain, No arm pain, No back pain, No hand pain, No leg pain, No foot pain Skin: No Rash, No Lesions, No Jaundice, No Bruising, No Other Objective Vitals Vital Signs Date Time Temp Pulse Resp B/P (MAP) Pulse Ox O2 Delivery O2 Flow Rate FiO2 09/17/24 05:00 97.6 65 17 117/51 (73) 97 97.6 09/16/24 20:00 Nasal Cannula* 2 28 Intake/Output Intake and Output 09/17/24 07:00 Intake Total 2271 ml Balance 2271 ml Intake Oral 920 ml IV Total 1351 ml # Voids 5 Medications Current Medications Medications Dose Ordered Sig/Eliseo Route Start Time Stop Time Status Last Admin Dose Admin Famotidine 20 mg DAILY IV 09/14/24 10:00 09/16/24 10:04 20 MG Guaifenesin/ Dextromethorphan 10 ml Q4HP PRN PO 09/13/24 22:00 09/14/24 03:52 10 ML Albuterol 2.5 mg Q4HPRN PRN NEB 09/13/24 22:00 Cancel Ipratropium [place] 0.5 mg Q4HPRN PRN NEB 09/13/24 22:00 Cancel Gabapentin 300 mg TID PO 09/13/24 22:00 09/17/24 05:32 300 MG Apixaban 5 mg BID PO 09/13/24 22:00 09/16/24 21:24 5 MG Sodium Chloride 10 ml Q8HR IV 09/13/24 22:00 09/17/24 05:32 10 ML Ondansetron HCl 4 mg Q4HP PRN IV 09/13/24 22:00 Docusate Sodium 100 mg BIDPRN PRN PO 09/13/24 22:00 Acetaminophen 650 mg Q6HP PRN PO 09/13/24 22:00 Nitroglycerin 0.4 mg Q5MINP PRN SL 09/13/24 22:00 Morphine Sulfate 2 mg Q30M PRN IV 09/13/24 22:00 Oseltamivir Phosphate 75 mg Q12HR PO 09/14/24 12:34 09/19/24 12:33 09/16/24 21:25 75 MG Ceftriaxone Sodium 50 ml @ 100 mls/hr DAILY@09 IV 09/15/24 09:00 09/16/24 10:29 100 MLS/HR Azithromycin 250 ml @ 125 mls/hr DAILY IV 09/15/24 10:00 09/16/24 10:54 125 MLS/HR Ascorbic Acid 500 mg BID PO 09/14/24 22:00 09/16/24 21:24 500 MG Zinc Sulfate 220 mg DAILY PO 09/15/24 10:00 09/16/24 10:04 220 MG Cholecalciferol 4,000 unit DAILY PO 09/15/24 10:00 09/16/24 10:04 4,000 UNIT Dexamethasone Sodium Phosphate 10 mg/Dextrose 51 ml @ 204 mls/hr DAILY IV 09/15/24 10:00 09/16/24 10:03 204 MLS/HR Acetaminophen/ Hydrocodone Bitart 1 tab Q8HP PRN PO 09/14/24 12:30 09/17/24 03:34 1 TAB Sodium Chloride 1,000 ml @ 100 mls/hr Q10H IV 09/15/24 13:15 09/17/24 03:34 100 MLS/HR Laboratory Results Laboratory Tests 09/14/24 05:12 Microbiology Microbiology Date/Time Source Procedure Growth Status 09/13/24 19:00 Blood Blood Culture - Preliminary NO GROWTH AFTER 72 HOURS OF INCUBATION. Resulted Labs and/or images reviewed: Labs reviewed by me, Image(s) reviewed by me Assessment/Plan Assessment/Plan Acute hypoxic respiratory failure: Oxygen by nasal cannula Type A flu positive, type B flu positive: Tamiflu 75 mg p.o. b.i.d. five days Possible community-acquired pneumonia: Rocephin azithromycin COVID positive: Albuterol Atrovent med neb Decadron vitamin-C zinc vitamin D3 History of rheumatoid arthritis: Consult by Dr. Anna thapa , recommended to hold methotrexate and Enbrel while inpatient, and resume as out pt. Chronic left shoulder pain under the pain management Dr Dr. Mckinnon, patient says she takes [place] 10/325 po TID History of left foot drop since one year under the physical therapy History of DVT and PE on Eliquis Blood cultures negative PCP Dr.Nanda Peng Time spent 54 minutes Patient is full code Patient feels better today Plan discussed with: Patient Date of Service: Sep 17, 2024 Billing Provider: TRUONG PAGE MD Common Visit Codes: [id number] INP/OBS CARE(HIGH) TRUONG PAGE MD Sep 17, 2024 07:55
--- NOTE | 2024-09-17 10:35 | ECG ---
[facility] Test Date: 2024-09-13 Test Time: 18:24:04 Pat Name: IJEOMA LIZAMA Department: ED Room: 0207T A Gender: F [employer]: CASEY : 1960 Requested By: AUGUSTIN TORREZ Order Number: [id number] Reading MD: Dion Vidal Measurements Intervals [place] Rate: 75 P: 0 MD: 0 QRS: 5 QRSD: 92 T: 68 QT: 414 QTc: 463 Interpretive Statements Atrial flutter with predominant 3:[address] elevation, inferior leads Baseline wander in lead(s) V6 Electronically Signed On 09-21-2024 16:48:51 PST by Doin Vidal Please click the below link to view image of tracing.
--- NOTE | 2024-09-17 14:54 | CONS ---
Home Medication Review Med Rec on Admission: Scheduled Apixaban Base (Eliquis), 1 TAB PO BID, (Reported) Baclofen (Baclofen), 1 TAB PO TID PRN, (Reported) Fluticasone Propionate (Nasal) (Flonase Allergy Relief), 1 SPRAY EACHNOSTRI DAILY, (Reported) Gabapentin (Gabapentin), 2 CAP PO DAILY, (Reported) Hydrocodone-Acetaminophen (Hydrocodone Bitartrate/AC 10-325 mg), 1 TAB PO Q8HR PRN, (Reported) Hydroxychloroquine Sulfate (Hydroxychloroquine Sulfat), 2 TAB PO DAILY, (Reported) Lactulose (Lactulose), 15 ML PO DAILY PRN, (Reported) Methotrexate (Methotrexate Sodium), 10 TAB PO QWEEKLY, (Reported) Morphine Sulfate (Morphine Sulfate Cr), 1 TAB PO Q2HR, (Reported) Omeprazole (Omeprazole Dr), 1 CAP PO DAILY, (Reported) Miscellaneous Medications Folic Acid (Folic Acid), 1 MG PO, (Reported) Tetrahydrozoline Hcl (Eye Drops), 0.05 % OP, (Reported) Discontinued Medications Baclofen (Baclofen), 1 TAB PO TID, (Reported) Discontinued Reason: Prescription changed Gabapentin (Gabapentin), 1 CAP PO TID, (Reported) Discontinued Reason: Prescription changed Morphine Sulfate Beads (Morphine Sulfate ER), 30 MG PO, (Reported) Discontinued Reason: Prescription changed Omeprazole Magnesium (Omeprazole), 20 MG PO, (Reported) Discontinued Reason: Prescription changed Med Rec on Discharge: Electronic Scripts Reported Medications Methotrexate (Methotrexate Sodium) 2.5 Mg Tab, 10 TAB PO QWEEKLY for 84 Days, #120 3/4/25 Lactulose (Lactulose) 10 Gm/15 Ml Erin, 15 ML PO DAILY PRN for 30 Days, #450 3/4/25 Apixaban Base (ELIQUIS) 5 Mg Tab, 1 TAB PO BID for 30 Days, #60 3/4/25 Hydroxychloroquine Sulfate (Hydroxychloroquine Sulfat) 200 Mg Tab, 2 TAB PO DAILY for 90 Days, #180 3/4/25 Baclofen (Baclofen) 10 Mg Tab, 1 TAB PO TID PRN for 90 Days, #270 3/4/25 Omeprazole (Omeprazole Dr) 40 Mg Cap, 1 CAP PO DAILY for 90 Days, #90 3/4/25 Gabapentin (Gabapentin) 300 Mg Cap, 2 CAP PO DAILY for 90 Days, #180 09/17/24 Morphine Sulfate (Morphine Sulfate Cr) 15 Mg Tab, 1 TAB PO Q2HR for 30 Days, #60 09/17/24 Tetrahydrozoline Hcl (Eye Drops) 0.05 % Erin, 0.05 % OP, ML 09/14/24 Fluticasone Propionate (Nasal) (Flonase Allergy Relief) 50 Mcg/Act Spr, 1 SPRAY EACHNOSTRI DAILY for 60 Days, #16 09/14/24 Hydrocodone-Acetaminophen (Hydrocodone Bitartrate/AC 10-325 mg) 1 Tab Tab, 1 TAB PO Q8HR PRN for 30 Days, #90 09/14/24 Folic Acid (Folic Acid) 1 Mg Tab, 1 MG PO, TAB 09/14/24 Discontinued Reported Medications Baclofen (Baclofen) 20 Mg Tab, 1 TAB PO TID, #90 TAB 2 Refills 09/14/24 Omeprazole Magnesium (Omeprazole) 20 Mg Tab, 20 MG PO, TAB 09/14/24 Gabapentin (Gabapentin) 100 Mg Cap, 1 CAP PO TID, #90 CAP 2 Refills 09/14/24 Morphine Sulfate Beads (Morphine Sulfate ER) 30 Mg Cap, 30 MG PO, CAP 09/14/24 Notes Notes: Edited: Gabapentin 300 mg cap. Take 2 capsules by mouth daily. Discharge Data Labs: Laboratory Results Test 09/14/24 05:12 09/13/24 21:45 09/13/24 19:00 White Blood Count 4.0 10^3/uL (4.4-10.8) Red Blood Count 4.70 10^6/uL (4.0-5.20) Hemoglobin 13.0 g/dL (12.2-16.2) Hematocrit 40.4 % (36.0-46.0) Mean Corpuscular Volume 85.9 fL (80.0-100.0) Mean Corpuscular Hemoglobin 27.6 pg (28.0-32.0) Mean Corpuscular Hemoglobin Concent 32.1 g/dL (32.0-36.0) Red Cell Distribution Width 18.6 % (11.8-14.3) Platelet Count 275 10^3/uL (140-450) Mean Platelet Volume 7.8 fL (6.9-10.8) Neutrophils (%) (Auto) 48.1 % (37.0-80.0) Lymphocytes (%) (Auto) 35.5 % (10.0-50.0) Monocytes (%) (Auto) 11.9 % (0.0-12.0) Eosinophils (%) (Auto) 4.2 % (0.0-7.0) Basophils (%) (Auto) 0.3 % (0.0-2.0) Neutrophils # (Auto) 1.9 10 ^3/uL (1.6-8.6) Lymphocytes # (Auto) 1.4 10 ^3/uL (0.4-5.4) Monocytes # (Auto) 0.5 10 ^3/uL (0-1.3) Eosinophils # (Auto) 0.2 10 ^3/uL (0-0.8) Basophils # (Auto) 0 10 ^3/uL (0-0.2) Nucleated Red Blood Cells 0.3 % Sodium Level 143 mmol/L (136-145) Potassium Level 3.5 mmol/L (3.5-5.1) Chloride Level 104 mmol/L (98-107) Carbon Dioxide Level 30 mmol/L (20-31) Anion Gap 9 (5-15) Blood Urea Nitrogen < 5 mg/dL (9-23) Creatinine 0.62 mg/dL (0.550-1.02) Glomerular Filtration Rate Calc 99 mL/min (>90) BUN/Creatinine Ratio 8.1 (10.0-20.0) Serum Glucose 104 mg/dL (74-106) Calcium Level 8.8 mg/dL (8.7-10.4) Total Bilirubin 0.4 mg/dL (0.2-1.0) Aspartate Amino Transferase (AST) 19 U/L (13-40) Alanine Aminotransferase (ALT) < 9 U/L (7-40) Alkaline Phosphatase 68 U/L (46-116) Total Protein 6.6 g/dL (5.7-8.2) Albumin 3.7 g/dL (3.2-4.8) Influenza Type A Antigen Positive (Negative) Influenza Type B Antigen Positive (Negative) SARS-CoV-2 Antigen (Rapid) Positive (NEGATIVE) Lactic Acid Level 1.2 mmol/L (0.4-2.0) B-Type Natriuretic Peptide 15.52 pg/mL (0-100) Other Laboratory Tests 09/14/24 05:12 SAMREEN DE LEÓN [facility] Sep 17, 2024 14:54
--- NOTE | 2024-09-17 15:54 | DVHPN2 ---
Progress Note Date Seen: Sep 17, 2024 Medical Necessity Reason Pt with a Central, PICC or Fol: No Subjective Patient reports: No new complaints Objective vital signs Vital Sign Date Time Temp Pulse Resp B/P (MAP) Pulse Ox O2 Delivery O2 Flow Rate FiO2 09/17/24 12:17 97.7 67 15 118/49 (72) 97 97.7 09/17/24 10:00 Nasal Cannula* 2 28 Total Intake and Output 09/16/24 09/16/24 09/17/24 15:00 23:00 07:00 Intake Total 1351 ml 720 ml 200 ml Balance 1351 ml 720 ml 200 ml medications Current Medications Medications Dose Ordered Sig/Eliseo Route Start Time Stop Time Status Last Admin Dose Admin Famotidine 20 mg DAILY IV 09/14/24 10:00 09/17/24 09:59 20 MG Guaifenesin/ Dextromethorphan 10 ml Q4HP PRN PO 09/13/24 22:00 09/14/24 03:52 10 ML Albuterol 2.5 mg Q4HPRN PRN NEB 09/13/24 22:00 Cancel Ipratropium [place] 0.5 mg Q4HPRN PRN NEB 09/13/24 22:00 Cancel Gabapentin 300 mg TID PO 09/13/24 22:00 09/17/24 15:23 300 MG Apixaban 5 mg BID PO 09/13/24 22:00 09/17/24 11:09 5 MG Sodium Chloride 10 ml Q8HR IV 09/13/24 22:00 09/17/24 15:24 10 ML Ondansetron HCl 4 mg Q4HP PRN IV 09/13/24 22:00 Docusate Sodium 100 mg BIDPRN PRN PO 09/13/24 22:00 Acetaminophen 650 mg Q6HP PRN PO 09/13/24 22:00 Nitroglycerin 0.4 mg Q5MINP PRN SL 09/13/24 22:00 Morphine Sulfate 2 mg Q30M PRN IV 09/13/24 22:00 Oseltamivir Phosphate 75 mg Q12HR PO 09/14/24 12:34 09/19/24 12:33 09/17/24 09:57 75 MG Ceftriaxone Sodium 50 ml @ 100 mls/hr DAILY@09 IV 09/15/24 09:00 09/17/24 09:57 100 MLS/HR Azithromycin 250 ml @ 125 mls/hr DAILY IV 09/15/24 10:00 09/17/24 13:18 125 MLS/HR Ascorbic Acid 500 mg BID PO 09/14/24 22:00 09/17/24 09:58 500 MG Zinc Sulfate 220 mg DAILY PO 09/15/24 10:00 09/17/24 09:58 220 MG Cholecalciferol 4,000 unit DAILY PO 09/15/24 10:00 09/17/24 09:58 4,000 UNIT Dexamethasone Sodium Phosphate 10 mg/Dextrose 51 ml @ 204 mls/hr DAILY IV 09/15/24 10:00 09/16/24 10:03 204 MLS/HR Acetaminophen/ Hydrocodone Bitart 1 tab Q8HP PRN PO 09/14/24 12:30 09/17/24 03:34 1 TAB Sodium Chloride 1,000 ml @ 100 mls/hr Q10H IV 09/15/24 13:15 09/17/24 03:34 100 MLS/HR laboratory and microbiology Laboratory Tests 09/14/24 05:12 Test 09/14/24 05:12 Range/Units Serum Glucose 104 74-106 mg/dL Microbiology Date/Time Source Procedure Growth Status 09/13/24 19:00 Blood Blood Culture - Preliminary NO GROWTH AFTER 72 HOURS OF INCUBATION. Resulted Problem List/Assessment/Plan Problems(with codes): (1) Foot drop (2) Rheumatoid arthritis (3) Acute respiratory distress (4) Acute on chronic diastolic heart failure (5) Generalized weakness Problem List/Assessment/Plan MRI L spine to eval etiology of foot drop, consider Neurology consultation hold enbrel + MTX while hospitalized, will resume outpatient once sepsis and respiratory failure resolved may need to switch enbrel to diff MOA due to partial efficacy Plan discussed with: Patient My Orders My Orders Orders - ELISHA HANSON MD Procedure Category Date Status Time Lumbar Spine Wo MRI 09/17/24 Transmitted Contrast 15:50 ELISHA HANSON MD Sep 17, 2024 15:54
[2024-09-18] VITALS (9 sets, daily range): BP systolic 115–142; BP diastolic 48–74; PULSE 48–75; RESP 17–20; TEMP 97.5–98.3; O2SAT 96–100
--- NOTE | 2024-09-18 08:00 | DVHPN2 ---
Reviewed: Care Plan, H&P, Labs, Medications, Previous Orders, Radiology Changes from previous H/P or p: No Changes Eyes: No Pain, No Vision change, No Conjunctivae inflammation, No Eyelid inflammation, No Other, No Redness ENT: No Ear pain, No Ear discharge, No Nose pain, No Nose discharge, No Nose congestion, No Mouth pain, No Mouth swelling, No Throat pain, No Throat swelling, No Other Cardiovascular: No Chest Pain, No Palpitations, No Orthopnea, No Paroxysmal Noc. Dyspnea, No Edema, No Lt Headedness, No Other Respiratory: Cough; No Dry; Shortness of breath; No SOB with excertion, No Wheezing, No Hemoptysis, No Pleuritic Pain, No Sputum, No Other Gastrointestinal: No Nausea, No Vomiting, No Abdominal Pain, No Diarrhea, No Constipation, No Melena, No Hematochezia, No Other Genitourinary: No Dysuria, No Frequency, No Incontinence, No Hematuria, No Retention, No Other Musculoskeletal: No other, No neck pain, No shoulder pain, No arm pain, No back pain, No hand pain, No leg pain, No foot pain Skin: No Rash, No Lesions, No Jaundice, No Bruising, No Other Objective Vitals Vital Signs Date Time Temp Pulse Resp B/P (MAP) Pulse Ox O2 Delivery O2 Flow Rate FiO2 09/18/24 05:00 97.9 62 17 115/48 (70) 99 97.9 09/17/24 20:00 Nasal Cannula* 2 28 Intake/Output Intake and Output 09/18/24 07:00 Intake Total 1550 ml Output Total 6 ml Balance 1544 ml Intake Oral 1250 ml IV Total 300 ml Output Urine Total 6 ml # Voids 4 Medications Current Medications Medications Dose Ordered Sig/Eliseo Route Start Time Stop Time Status Last Admin Dose Admin Famotidine 20 mg DAILY IV 09/14/24 10:00 09/17/24 09:59 20 MG Guaifenesin/ Dextromethorphan 10 ml Q4HP PRN PO 09/13/24 22:00 09/14/24 03:52 10 ML Albuterol 2.5 mg Q4HPRN PRN NEB 09/13/24 22:00 Cancel Ipratropium [place] 0.5 mg Q4HPRN PRN NEB 09/13/24 22:00 Cancel Gabapentin 300 mg TID PO 09/13/24 22:00 09/18/24 05:21 300 MG Apixaban 5 mg BID PO 09/13/24 22:00 09/17/24 21:05 5 MG Sodium Chloride 10 ml Q8HR IV 09/13/24 22:00 09/18/24 05:21 10 ML Ondansetron HCl 4 mg Q4HP PRN IV 09/13/24 22:00 Docusate Sodium 100 mg BIDPRN PRN PO 09/13/24 22:00 Acetaminophen 650 mg Q6HP PRN PO 09/13/24 22:00 Nitroglycerin 0.4 mg Q5MINP PRN SL 09/13/24 22:00 Morphine Sulfate 2 mg Q30M PRN IV 09/13/24 22:00 Oseltamivir Phosphate 75 mg Q12HR PO 09/14/24 12:34 09/19/24 12:33 09/17/24 21:06 75 MG Ceftriaxone Sodium 50 ml @ 100 mls/hr DAILY@09 IV 09/15/24 09:00 09/17/24 09:57 100 MLS/HR Azithromycin 250 ml @ 125 mls/hr DAILY IV 09/15/24 10:00 09/17/24 13:18 125 MLS/HR Ascorbic Acid 500 mg BID PO 09/14/24 22:00 09/17/24 21:05 500 MG Zinc Sulfate 220 mg DAILY PO 09/15/24 10:00 09/17/24 09:58 220 MG Cholecalciferol 4,000 unit DAILY PO 09/15/24 10:00 09/17/24 09:58 4,000 UNIT Dexamethasone Sodium Phosphate 10 mg/Dextrose 51 ml @ 204 mls/hr DAILY IV 09/15/24 10:00 09/17/24 10:00 204 MLS/HR Acetaminophen/ Hydrocodone Bitart 1 tab Q8HP PRN PO 09/14/24 12:30 09/17/24 21:35 1 TAB Sodium Chloride 1,000 ml @ 100 mls/hr Q10H IV 09/15/24 13:15 09/18/24 03:43 100 MLS/HR Laboratory Results Laboratory Tests 09/14/24 05:12 Microbiology Microbiology Date/Time Source Procedure Growth Status 09/13/24 19:00 Blood Blood Culture - Preliminary NO GROWTH AFTER 72 HOURS OF INCUBATION. Resulted Labs and/or images reviewed: Labs reviewed by me, Image(s) reviewed by me Assessment/Plan Assessment/Plan Acute hypoxic respiratory failure: Oxygen by nasal cannula Type A flu positive, type B flu positive: Tamiflu 75 mg p.o. b.i.d. five days Possible community-acquired pneumonia: Rocephin azithromycin COVID positive: Albuterol Atrovent med neb Decadron vitamin-C zinc vitamin D3 History of rheumatoid arthritis: Consult by Dr. Anna thapa , recommended to hold methotrexate and Enbrel while inpatient, and resume as out pt. Chronic left shoulder pain under the pain management Dr Dr. Mckinnon, patient says she takes [place] 10/325 po TID History of left foot drop since one year under the physical therapy History of DVT and PE on Eliquis: Ultrasound left lower extremity ordered Blood cultures negative PCP Dr.Nanda Peng Time spent 54 minutes Patient is full code Patient feels better today Plan discussed with: Patient My Orders Orders - TRUONG PAGE MD Procedure Category Date Status Time Insert Midline ORDERS 09/17/24 Transmitted 10:55 Date of Service: Sep 18, 2024 Billing Provider: TRUONG PAGE MD Common Visit Codes: [id number] INP/OBS CARE(HIGH) TRUONG PAGE MD Sep 18, 2024 08:00
--- NOTE | 2024-09-18 09:50 | DVH ---
US LT Lower DVT HISTORY: Rule out DVT COMPARISON: None TECHNIQUE: Duplex Doppler evaluation of the deep venous system of the lower extremity from the common femoral veins, superficial femoral vein, great saphenous vein, deep femoral vein, popliteal vein, an d calf veins, including color Doppler and spectral/pulsed waveform analysis, was performed. FINDINGS: Left: - Common femoral vein: Compressible - Deep femoral vein: Compressible - Femoral vein: Compressible - Popliteal vein: Compressible - Posterior tibial vein: Waveforms present - Other: Nothing IMPRESSION: No left lower extremity deep venous thrombosis.
[2024-09-18] MEDS: DOCUSATE SOD 100 MG CAP PO PRN (21:35)
[2024-09-19] VITALS (9 sets, daily range): BP systolic 99–122; BP diastolic 51–68; PULSE 51–90; RESP 16–22; TEMP 97.4–97.9; O2SAT 95–100
--- NOTE | 2024-09-19 09:50 | DVHPN2 ---
Reviewed: Care Plan, H&P, Labs, Medications, Previous Orders, Radiology Changes from previous H/P or p: No Changes Eyes: No Pain, No Vision change, No Conjunctivae inflammation, No Eyelid inflammation, No Other, No Redness ENT: No Ear pain, No Ear discharge, No Nose pain, No Nose discharge, No Nose congestion, No Mouth pain, No Mouth swelling, No Throat pain, No Throat swelling, No Other Cardiovascular: No Chest Pain, No Palpitations, No Orthopnea, No Paroxysmal Noc. Dyspnea, No Edema, No Lt Headedness, No Other Respiratory: Cough; No Dry; Shortness of breath; No SOB with excertion, No Wheezing, No Hemoptysis, No Pleuritic Pain, No Sputum, No Other Gastrointestinal: No Nausea, No Vomiting, No Abdominal Pain, No Diarrhea, No Constipation, No Melena, No Hematochezia, No Other Genitourinary: No Dysuria, No Frequency, No Incontinence, No Hematuria, No Retention, No Other Musculoskeletal: No other, No neck pain, No shoulder pain, No arm pain, No back pain, No hand pain, No leg pain, No foot pain Skin: No Rash, No Lesions, No Jaundice, No Bruising, No Other Objective Vitals Vital Signs Date Time Temp Pulse Resp B/P (MAP) Pulse Ox O2 Delivery O2 Flow Rate FiO2 09/19/24 09:00 97.4 90 22 111/65 (80) 100 97.4 09/18/24 20:00 Nasal Cannula* 2 28 Intake/Output Intake and Output 09/19/24 07:00 Intake Total 2950 ml Balance 2950 ml Intake Oral 1650 ml IV Total 1300 ml # Voids 8 Medications Current Medications Medications Dose Ordered Sig/Eliseo Route Start Time Stop Time Status Last Admin Dose Admin Famotidine 20 mg DAILY IV 09/14/24 10:00 09/18/24 10:21 20 MG Guaifenesin/ Dextromethorphan 10 ml Q4HP PRN PO 09/13/24 22:00 09/18/24 21:38 10 ML Albuterol 2.5 mg Q4HPRN PRN NEB 09/13/24 22:00 Cancel Ipratropium [place] 0.5 mg Q4HPRN PRN NEB 09/13/24 22:00 Cancel Gabapentin 300 mg TID PO 09/13/24 22:00 09/19/24 05:25 300 MG Apixaban 5 mg BID PO 09/13/24 22:00 09/18/24 21:34 5 MG Sodium Chloride 10 ml Q8HR IV 09/13/24 22:00 09/19/24 05:24 10 ML Ondansetron HCl 4 mg Q4HP PRN IV 09/13/24 22:00 Docusate Sodium 100 mg BIDPRN PRN PO 09/13/24 22:00 09/18/24 21:35 100 MG Acetaminophen 650 mg Q6HP PRN PO 09/13/24 22:00 Nitroglycerin 0.4 mg Q5MINP PRN SL 09/13/24 22:00 Morphine Sulfate 2 mg Q30M PRN IV 09/13/24 22:00 Oseltamivir Phosphate 75 mg Q12HR PO 09/14/24 12:34 09/19/24 12:33 09/18/24 21:34 75 MG Ceftriaxone Sodium 50 ml @ 100 mls/hr DAILY@09 IV 09/15/24 09:00 09/18/24 08:08 100 MLS/HR Azithromycin 250 ml @ 125 mls/hr DAILY IV 09/15/24 10:00 09/18/24 10:21 125 MLS/HR Ascorbic Acid 500 mg BID PO 09/14/24 22:00 09/18/24 21:34 500 MG Zinc Sulfate 220 mg DAILY PO 09/15/24 10:00 09/18/24 10:19 220 MG Cholecalciferol 4,000 unit DAILY PO 09/15/24 10:00 09/18/24 10:20 4,000 UNIT Dexamethasone Sodium Phosphate 10 mg/Dextrose 51 ml @ 204 mls/hr DAILY IV 09/15/24 10:00 09/18/24 10:00 204 MLS/HR Acetaminophen/ Hydrocodone Bitart 1 tab Q8HP PRN PO 09/14/24 12:30 09/18/24 20:00 1 TAB Sodium Chloride 1,000 ml @ 100 mls/hr Q10H IV 09/15/24 13:15 09/18/24 20:04 100 MLS/HR Laboratory Results Laboratory Tests 09/14/24 05:12 Microbiology Microbiology Date/Time Source Procedure Growth Status 09/13/24 19:00 Blood Blood Culture - Final NO GROWTH AFTER 5 DAYS OF INCUBATION. Complete Labs and/or images reviewed: Labs reviewed by me, Image(s) reviewed by me Assessment/Plan Assessment/Plan Acute hypoxic respiratory failure: Oxygen by nasal cannula Type A flu positive, type B flu positive: Tamiflu 75 mg p.o. b.i.d. five days Possible community-acquired pneumonia: Rocephin azithromycin COVID positive: Albuterol Atrovent med neb Decadron vitamin-C zinc vitamin D3 History of rheumatoid arthritis: Consult by Dr. Castillo appreciated , recommended to hold methotrexate and Enbrel while inpatient, and resume as out pt. Chronic left shoulder pain under the pain management Dr Dr. Mckinnon, patient says she takes [place] 10/325 po TID History of left foot drop since one year under the physical therapy History of DVT and PE on Eliquis: Ultrasound left lower extremity ordered Blood cultures negative PCP Dr.Nanda Peng Time spent 54 minutes Patient is full code Patient feels better today Continue current management MRI lumbar spine ordered by paediatric physiotherapist Dr. Castillo could not be done as the patient has COVID Plan discussed with: Patient Date of Service: Sep 19, 2024 Billing Provider: TRUONG PAGE MD Common Visit Codes: [id number] INP/OBS CARE(HIGH) TRUONG PAGE MD Sep 19, 2024 09:50
[2024-09-19] MEDS: DexAMETHasone SOD PHOS 10MG/1ML VIAL INJ IV SCH (15:04)
[2024-09-20] VITALS (9 sets, daily range): BP systolic 102–134; BP diastolic 42–59; PULSE 56–94; RESP 15–18; TEMP 97.8–98.9; O2SAT 92–100
--- NOTE | 2024-09-20 07:00 | ECG ---
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
--- NOTE | 2024-09-20 09:00 | DVHPN2 ---
Reviewed: Care Plan, H&P, Labs, Medications, Previous Orders, Radiology Changes from previous H/P or p: No Changes Eyes: No Pain, No Vision change, No Conjunctivae inflammation, No Eyelid inflammation, No Other, No Redness ENT: No Ear pain, No Ear discharge, No Nose pain, No Nose discharge, No Nose congestion, No Mouth pain, No Mouth swelling, No Throat pain, No Throat swelling, No Other Cardiovascular: No Chest Pain, No Palpitations, No Orthopnea, No Paroxysmal Noc. Dyspnea, No Edema, No Lt Headedness, No Other Respiratory: Cough; No Dry; Shortness of breath; No SOB with excertion, No Wheezing, No Hemoptysis, No Pleuritic Pain, No Sputum, No Other Gastrointestinal: No Nausea, No Vomiting, No Abdominal Pain, No Diarrhea, No Constipation, No Melena, No Hematochezia, No Other Genitourinary: No Dysuria, No Frequency, No Incontinence, No Hematuria, No Retention, No Other Musculoskeletal: No other, No neck pain, No shoulder pain, No arm pain, No back pain, No hand pain, No leg pain, No foot pain Skin: No Rash, No Lesions, No Jaundice, No Bruising, No Other Objective Vitals Vital Signs Date Time Temp Pulse Resp B/P (MAP) Pulse Ox O2 Delivery O2 Flow Rate FiO2 09/20/24 05:00 97.8 56 16 116/55 (75) 97 97.8 09/19/24 20:00 Nasal Cannula* 2 28 Intake/Output Intake and Output 09/20/24 07:00 Intake Total 2700 ml Output Total 900 ml Balance 1800 ml Intake Oral 1200 ml IV Total 1500 ml Output Urine Total 900 ml # Voids 2 Medications Current Medications Medications Dose Ordered Sig/Eliseo Route Start Time Stop Time Status Last Admin Dose Admin Famotidine 20 mg DAILY IV 09/14/24 10:00 09/19/24 15:08 20 MG Guaifenesin/ Dextromethorphan 10 ml Q4HP PRN PO 09/13/24 22:00 09/19/24 11:21 10 ML Albuterol 2.5 mg Q4HPRN PRN NEB 09/13/24 22:00 Cancel Ipratropium [place] 0.5 mg Q4HPRN PRN NEB 09/13/24 22:00 Cancel Gabapentin 300 mg TID PO 09/13/24 22:00 09/20/24 05:30 300 MG Apixaban 5 mg BID PO 09/13/24 22:00 09/19/24 21:04 5 MG Sodium Chloride 10 ml Q8HR IV 09/13/24 22:00 09/20/24 05:31 10 ML Ondansetron HCl 4 mg Q4HP PRN IV 09/13/24 22:00 Docusate Sodium 100 mg BIDPRN PRN PO 09/13/24 22:00 09/18/24 21:35 100 MG Acetaminophen 650 mg Q6HP PRN PO 09/13/24 22:00 Nitroglycerin 0.4 mg Q5MINP PRN SL 09/13/24 22:00 Morphine Sulfate 2 mg Q30M PRN IV 09/13/24 22:00 Ceftriaxone Sodium 50 ml @ 100 mls/hr DAILY@09 IV 09/15/24 09:00 09/19/24 11:20 100 MLS/HR Azithromycin 250 ml @ 125 mls/hr DAILY IV 09/15/24 10:00 09/19/24 16:13 125 MLS/HR Ascorbic Acid 500 mg BID PO 09/14/24 22:00 09/19/24 21:04 500 MG Zinc Sulfate 220 mg DAILY PO 09/15/24 10:00 09/19/24 11:23 220 MG Cholecalciferol 4,000 unit DAILY PO 09/15/24 10:00 09/19/24 11:22 4,000 UNIT Acetaminophen/ Hydrocodone Bitart 1 tab Q8HP PRN PO 09/14/24 12:30 09/20/24 04:20 1 TAB Sodium Chloride 1,000 ml @ 100 mls/hr Q10H IV 09/15/24 13:15 09/20/24 04:56 100 MLS/HR Dexamethasone Sodium Phosphate 10 mg DAILY IV 09/19/24 13:50 09/19/24 15:04 10 MG Laboratory Results Laboratory Tests 09/14/24 05:12 Microbiology Microbiology Date/Time Source Procedure Growth Status 09/13/24 19:00 Blood Blood Culture - Final NO GROWTH AFTER 5 DAYS OF INCUBATION. Complete Labs and/or images reviewed: Labs reviewed by me, Image(s) reviewed by me Assessment/Plan Assessment/Plan Acute hypoxic respiratory failure: Oxygen by nasal cannula Type A flu positive, type B flu positive: Tamiflu 75 mg p.o. b.i.d. five days Possible community-acquired pneumonia: Rocephin azithromycin COVID positive: Albuterol Atrovent med neb Decadron vitamin-C zinc vitamin D3 History of rheumatoid arthritis: Consult by Dr. Castillo appreciated , recommended to hold methotrexate and Enbrel while inpatient, and resume as out pt. Chronic left shoulder pain under the pain management Dr Dr. Mckinnon, patient says she takes [place] 10/325 po TID History of left foot drop since one year under the physical therapy History of DVT and PE on Eliquis: Ultrasound left lower extremity negative for DVT during this visit Blood cultures negative PCP Dr.Nanda Peng Time spent 50 minutes Patient is full code Patient feels better today Continue current management MRI lumbar spine ordered by it security project manager Dr. Castillo could not be done as the patient has COVID Plan discussed with: Patient My Orders Orders - TRUONG PAGE MD Procedure Category Date Status Time Dexamethasone PHA 09/19/24 In Process Injection (Decadron 13:50 Electrocardigram EKG 09/19/24 Logged 15:24 Date of Service: Sep 20, 2024 Billing Provider: TRUONG PAGE MD Common Visit Codes: [id number] INP/OBS CARE(HIGH) TRUONG PAGE MD Sep 20, 2024 09:00
--- NOTE | 2024-09-20 11:50 | ECG ---
[facility] [place] [facility] Test Date: 2024-09-19 Test Time: 15:33:57 Pat Name: IJEOMA LIZAMA Department: Respiratoy Room: 0207T A Gender: F Clinical Trials Systems Administrator: ZULEYMA : 1960 Requested By: TRUONG PAGE Order Number: [id number] Reading MD: Dion Vidal Measurements Intervals [place] Rate: 65 P: 0 [place]: 234 QRS: -8 QRSD: 89 T: 62 QT: 389 QTc: 405 Interpretive Statements Sinus rhythm Prolonged [place] interval Baseline wander in lead(s) V3 Electronically Signed On 09-20-2024 13:38:29 PST by Dion Vidal Please click the below link to view image of tracing.
[2024-09-21] VITALS (10 sets, daily range): BP systolic 111–133; BP diastolic 49–71; PULSE 54–81; RESP 16–19; TEMP 97.9–98.4; O2SAT 98–100
--- NOTE | 2024-09-21 07:57 | DVHDS2 ---
Discharge Summary Date of Admission Sep 13, 2024 at 21:47 Date of Discharge: Sep 21, 2024 Admitting Diagnosis Shortness of breath Wounds: None Labs/Diagnostic Data: Laboratory Results Test 09/14/24 05:12 09/13/24 21:45 09/13/24 19:00 White Blood Count 4.0 10^3/uL (4.4-10.8) Red Blood Count 4.70 10^6/uL (4.0-5.20) Hemoglobin 13.0 g/dL (12.2-16.2) Hematocrit 40.4 % (36.0-46.0) Mean Corpuscular Volume 85.9 fL (80.0-100.0) Mean Corpuscular Hemoglobin 27.6 pg (28.0-32.0) Mean Corpuscular Hemoglobin Concent 32.1 g/dL (32.0-36.0) Red Cell Distribution Width 18.6 % (11.8-14.3) Platelet Count 275 10^3/uL (140-450) Mean Platelet Volume 7.8 fL (6.9-10.8) Neutrophils (%) (Auto) 48.1 % (37.0-80.0) Lymphocytes (%) (Auto) 35.5 % (10.0-50.0) Monocytes (%) (Auto) 11.9 % (0.0-12.0) Eosinophils (%) (Auto) 4.2 % (0.0-7.0) Basophils (%) (Auto) 0.3 % (0.0-2.0) Neutrophils # (Auto) 1.9 10 ^3/uL (1.6-8.6) Lymphocytes # (Auto) 1.4 10 ^3/uL (0.4-5.4) Monocytes # (Auto) 0.5 10 ^3/uL (0-1.3) Eosinophils # (Auto) 0.2 10 ^3/uL (0-0.8) Basophils # (Auto) 0 10 ^3/uL (0-0.2) Nucleated Red Blood Cells 0.3 % Sodium Level 143 mmol/L (136-145) Potassium Level 3.5 mmol/L (3.5-5.1) Chloride Level 104 mmol/L (98-107) Carbon Dioxide Level 30 mmol/L (20-31) Anion Gap 9 (5-15) Blood Urea Nitrogen < 5 mg/dL (9-23) Creatinine 0.62 mg/dL (0.550-1.02) Glomerular Filtration Rate Calc 99 mL/min (>90) BUN/Creatinine Ratio 8.1 (10.0-20.0) Serum Glucose 104 mg/dL (74-106) Calcium Level 8.8 mg/dL (8.7-10.4) Total Bilirubin 0.4 mg/dL (0.2-1.0) Aspartate Amino Transferase (AST) 19 U/L (13-40) Alanine Aminotransferase (ALT) < 9 U/L (7-40) Alkaline Phosphatase 68 U/L (46-116) Total Protein 6.6 g/dL (5.7-8.2) Albumin 3.7 g/dL (3.2-4.8) Influenza Type A Antigen Positive (Negative) Influenza Type B Antigen Positive (Negative) SARS-CoV-2 Antigen (Rapid) Positive (NEGATIVE) Lactic Acid Level 1.2 mmol/L (0.4-2.0) B-Type Natriuretic Peptide 15.52 pg/mL (0-100) Other Laboratory Tests 09/14/24 05:12 Brief Hx & Hospital Course: 64-year-old female with a history of rheumatoid arthritis chronic left foot drop history of bilateral DVT and PE on Eliquis came in for shortness of breaths found to have type a and type B flu treated with the Tamiflu possible community- acquired pneumonia treated with Rocephin and azithromycin albuterol Atrovent Solu-Medrol Decadron vitamin-C zinc and vitamin D3 seen by Rheumatology Dr. Castillo advised to hold methotrexate and Enbrel and resume as outpatient blood cultures negative venous ultrasound negative for DVT left lower extremity during this visit. Patient on 3 L of oxygen by nasal cannula at the time of discharge. [facility]phin 1 g IV daily for 10 days. She completed the course of Tamiflu for the flu The plan is acceptable to the patient Consults/Reason for consult Rheumatology Dr. Castillo Operations or Procedures Venous ultrasound left lower extremity Condition at Discharge: Fair Final Diagnosis/Problems List Acute hypoxic respiratory failure: Oxygen by nasal cannula Type A flu positive, type B flu positive: Tamiflu 75 mg p.o. b.i.d. five days Possible community-acquired pneumonia: Rocephin azithromycin COVID positive: Albuterol Atrovent med neb Decadron vitamin-C zinc vitamin D3 History of rheumatoid arthritis: Consult by Dr. Anna thapa , recommended to hold methotrexate and Enbrel while inpatient, and resume as out pt. Chronic left shoulder pain under the pain management Dr Dr. Mckinnon, patient says she takes [place] 10/325 po TID History of left foot drop since one year under the physical therapy History of DVT and PE on Eliquis: Ultrasound left lower extremity negative for DVT during this visit Blood cultures negative Discharge Disposition: Long-Term Facility Discharge Instruct/Medications Diet: Cardiac 2g Na,low cholest Activity: Light activity Follow Up/Referral: [facility] with [facility] Medications: see list Rocephin 1 g IV daily for 10 days for pneumonia 35 (Time taken for discharge summary 35 minutes) Discharge Statement: "Patient was advised to return to the ER or call 911 if any headaches, dizziness, shortness of breath, chest pain, abdominal pain, bleeding, fevers, or worsening of medical condition. Patient was counseled about treatment plan, medications, possible side effects, patientverbalized understanding. All questions were answered to the best of my ability. This discharge took greater then 30 minutes in planning, reviewing documentation, counseling the patient, and discussing with other team members." ASSESSMENT ASSESSMENT Hospital Course Improved Assessment Acute hypoxic respiratory failure: Oxygen by nasal cannula Type A flu positive, type B flu positive: Tamiflu 75 mg p.o. b.i.d. five days Possible community-acquired pneumonia: Rocephin azithromycin COVID positive: Albuterol Atrovent med neb Decadron vitamin-C zinc vitamin D3 History of rheumatoid arthritis: Consult by Dr. Anna thapa , recommended to hold methotrexate and Enbrel while inpatient, and resume as out pt. Chronic left shoulder pain under the pain management Dr Dr. Mckinnon, patient says she takes [place] 10/325 po TID History of left foot drop since one year under the physical therapy History of DVT and PE on Eliquis: Ultrasound left lower extremity negative for DVT during this visit Blood cultures negative Date of Service: Sep 21, 2024 Billing Provider: TRUONG PAGE MD Common Visit Codes: [id number] DISCH DAY >30min TRUONG PAGE MD Sep 21, 2024 07:57
[2024-09-22 01:00] VITALS: BP 111/57; PULSE 67; RESP 18; TEMP 98.6; O2SAT 96
[2024-09-22 05:00] VITALS: BP 121/58; PULSE 71; RESP 20; TEMP 97.9; O2SAT 99
[2024-09-22 08:00] VITALS: PULSE 61; PULSE 66; RESP 16
[2024-09-22 08:30] VITALS: BP 94/64; PULSE 61; RESP 16; TEMP 97.9; O2SAT 100
--- NOTE | 2024-09-22 09:23 | DVHPN2 ---
Reviewed: Care Plan, H&P, Labs, Medications, Previous Orders, Radiology Changes from previous H/P or p: No Changes Eyes: No Pain, No Vision change, No Conjunctivae inflammation, No Eyelid inflammation, No Other, No Redness ENT: No Ear pain, No Ear discharge, No Nose pain, No Nose discharge, No Nose congestion, No Mouth pain, No Mouth swelling, No Throat pain, No Throat swelling, No Other Cardiovascular: No Chest Pain, No Palpitations, No Orthopnea, No Paroxysmal Noc. Dyspnea, No Edema, No Lt Headedness, No Other Respiratory: Cough; No Dry; Shortness of breath; No SOB with excertion, No Wheezing, No Hemoptysis, No Pleuritic Pain, No Sputum, No Other Gastrointestinal: No Nausea, No Vomiting, No Abdominal Pain, No Diarrhea, No Constipation, No Melena, No Hematochezia, No Other Genitourinary: No Dysuria, No Frequency, No Incontinence, No Hematuria, No Retention, No Other Musculoskeletal: No other, No neck pain, No shoulder pain, No arm pain, No back pain, No hand pain, No leg pain, No foot pain Skin: No Rash, No Lesions, No Jaundice, No Bruising, No Other Objective Vitals Vital Signs Date Time Temp Pulse Resp B/P (MAP) Pulse Ox O2 Delivery O2 Flow Rate FiO2 09/22/24 05:00 97.9 71 20 121/58 (79) 99 97.9 09/21/24 20:00 Nasal Cannula* 2 28 Intake/Output Intake and Output 09/22/24 07:00 Intake Total 3618 ml Output Total 500 ml Balance 3118 ml Intake Oral 3318 ml IV Total 300 ml Output Urine Total 500 ml # Voids 6 Medications Current Medications Medications Dose Ordered Sig/Eliseo Route Start Time Stop Time Status Last Admin Dose Admin Famotidine 20 mg DAILY IV 09/14/24 10:00 09/21/24 10:26 20 MG Guaifenesin/ Dextromethorphan 10 ml Q4HP PRN PO 09/13/24 22:00 09/20/24 10:33 10 ML Albuterol 2.5 mg Q4HPRN PRN NEB 09/13/24 22:00 Cancel Ipratropium Qulin 0.5 mg Q4HPRN PRN NEB 09/13/24 22:00 Cancel Gabapentin 300 mg TID PO 09/13/24 22:00 09/22/24 05:39 300 MG Apixaban 5 mg BID PO 09/13/24 22:00 09/21/24 21:23 5 MG Sodium Chloride 10 ml Q8HR IV 09/13/24 22:00 09/22/24 05:40 10 ML Ondansetron HCl 4 mg Q4HP PRN IV 09/13/24 22:00 Docusate Sodium 100 mg BIDPRN PRN PO 09/13/24 22:00 09/21/24 05:18 100 MG Acetaminophen 650 mg Q6HP PRN PO 09/13/24 22:00 Nitroglycerin 0.4 mg Q5MINP PRN SL 09/13/24 22:00 Morphine Sulfate 2 mg Q30M PRN IV 09/13/24 22:00 Ceftriaxone Sodium 50 ml @ 100 mls/hr DAILY@09 IV 09/15/24 09:00 09/21/24 09:16 100 MLS/HR Azithromycin 250 ml @ 125 mls/hr DAILY IV 09/15/24 10:00 09/21/24 10:28 125 MLS/HR Ascorbic Acid 500 mg BID PO 09/14/24 22:00 09/21/24 21:23 500 MG Zinc Sulfate 220 mg DAILY PO 09/15/24 10:00 09/21/24 10:26 220 MG Cholecalciferol 4,000 unit DAILY PO 09/15/24 10:00 09/21/24 10:26 4,000 UNIT Acetaminophen/ Hydrocodone Bitart 1 tab Q8HP PRN PO 09/14/24 12:30 09/22/24 00:13 1 TAB Sodium Chloride 1,000 ml @ 100 mls/hr Q10H IV 09/15/24 13:15 09/21/24 08:16 100 MLS/HR Dexamethasone Sodium Phosphate 10 mg DAILY IV 09/19/24 13:50 09/21/24 10:26 10 MG Laboratory Results Laboratory Tests 09/14/24 05:12 Microbiology Microbiology Date/Time Source Procedure Growth Status 09/13/24 19:00 Blood Blood Culture - Final NO GROWTH AFTER 5 DAYS OF INCUBATION. Complete Labs and/or images reviewed: Labs reviewed by me, Image(s) reviewed by me Assessment/Plan Assessment/Plan Acute hypoxic respiratory failure: Oxygen by nasal cannula Type A flu positive, type B flu positive: Tamiflu 75 mg p.o. b.i.d. five days Possible community-acquired pneumonia: Rocephin azithromycin COVID positive: Albuterol Atrovent med neb Decadron vitamin-C zinc vitamin D3 History of rheumatoid arthritis: Consult by Dr. Castillo appreciated , recommended to hold methotrexate and Enbrel while inpatient, and resume as out pt. Chronic left shoulder pain under the pain management Dr Dr. Mckinnon, patient says she takes [place] 10/325 po TID History of left foot drop since one year under the physical therapy History of DVT and PE on Eliquis: Ultrasound left lower extremity negative for DVT during this visit Blood cultures negative PCP Dr.Nanda Peng Time spent 50 minutes Patient is full code Patient feels better today Continue current management MRI lumbar spine ordered by information technology project manager Dr. Castillo could not be done as the patient has COVID Patient was discharged to long term facility for IV antibiotics on 09/21/2024, awaiting transportation Plan discussed with: Patient Date of Service: Sep 22, 2024 Billing Provider: TRUONG PAGE MD Common Visit Codes: [id number] INP/OBS CARE(HIGH) TRUONG PAGE MD Sep 22, 2024 09:22
[2024-09-22] MEDS ORDERED: cefTRIAXone 1GM/50ML D5W 50 ML IV ONE (09:30)
[2024-09-22 10:00] VITALS: O2SAT 99
[2024-09-22 12:30] VITALS: BP 120/68; PULSE 64; RESP 16; TEMP 97.9; O2SAT 93
== END 2024-09-22 10:00 | DRG 177 ==
LOC: EDUNIT# 18:23 → ER 18:23 → OVERFLOW 21:47 → TELE-CENTR 23:46
PROVIDERS: ADMIT Family Medicine; ATTEND Family Medicine
DX: U07.1 COVID-19 (principal); I50.33 Acute on chronic diastolic (congestive) heart failure; J96.01 Acute respiratory failure with hypoxia; J10.08 Influenza due to other identified influenza virus with other specified pneumonia; J12.82 Pneumonia due to coronavirus disease 2019; E87.6 Hypokalemia; M21.372 Foot drop, left foot; M06.9 Rheumatoid arthritis, unspecified; K21.9 Gastro-esophageal reflux disease without esophagitis; G89.29 Other chronic pain; Z98.51 Tubal ligation status; Z79.899 Other long term (current) drug therapy; Z79.631 Long term (current) use of antimetabolite agent; Z86.718 Personal history of other venous thrombosis and embolism; Z86.711 Personal history of pulmonary embolism
CPT/HCPCS: 36415; 71045; 80048; 80053; 83605; 83880; 85025; 87040; 87426; 87804; 93005; 93971; 96374; 97163; 99291; G0378; J1100; J3490; J7060